=== PATIENT | male | born 1995 | race Caucasian/White ===

== ENCOUNTER 2022-09-10 19:39 | Inpatient (IN) ==
[2022-09-10 19:59] LABS: Basophils # (auto) 0.01 K/uL (0-0.2); Basophils % (auto) 0.1 %; Hematocrit (blood only) 42.6 % (40.1-51.0); Hemoglobin 15.6 g/dl (14.0-18.0); Immature Granulocytes # (auto) 0.02 K/uL (0.00-0.02); Immature Granulocytes % (auto) 0.3 %; Lymphocytes # (auto) 0.74 K/uL (1.2-3.4); Lymphocytes % (auto) 9.8 %; Mean Corpuscular Hemoglobin 32.2 pg (25.0-34.0); Mean Corpuscular Hgb Conc 36.6 g/dL (32.0-36.0); Mean Platelet Volume 10.1 fL (9.4-12.4); Monocytes # (auto) 0.34 K/uL (0.24-0.82); Monocytes % (auto) 4.5 %; Neutrophils # (auto) 6.45 K/uL (1.4-6.5); Neutrophils % (auto) 85.3 %; Platelet Count 210 K/uL (130-400); RDW Coefficient of Variation 12.1 % (11.5-14.5); RDW Standard Deviation 39.2 fL (36.4-46.3); Red Blood Count 4.84 M/uL (4.63-6.08); White Blood Count 7.56 K/ul (4.8-10.8)
[2022-09-10 20:32] LABS: Albumin Globulin Ratio 1.8 (0.9-2); Albumin Level 4.8 gm/dl (3.4-5.0); BUN Creatinine Ratio 7.6 (10-20); Bilirubin,Total 1.7 mg/dl (0.2-1.0); Calcium 9.7 mg/dl (8.5-10.1); Creatinine Clr Calc Pharmacy 84.1 ml/min; Est GFR (African American) 96.8 ml/min; Est GFR (Non-African American) 83.5 ml/min; Globulin 2.6 gm/dl (2.5-4.0); Potassium 3.7 mmol/L (3.5-5.1); Total Protein 7.4 gm/dl (6.0-8.3)
[2022-09-10] MEDS ORDERED: SODIUM CHLORIDE 0.9% 1000ML 1,000 ML IV ONE ×2 (20:34→21:09)
[2022-09-10] MEDS ORDERED: ONDANSETRON INJ 2 MG/ML 2 ML VIAL IV STA (20:34)
--- NOTE | 2022-09-10 20:43 | Emergency Department Note ---
Impression & Plan Acute appendicitis with rupture, Abdominal pain, acute, right lower quadrant ED Provider Note NAME: JB ORTIZ AGE: 27 SEX: M : 1995 ARRIVES VIA: Walk-In INFORMANT: Patient, ED PROVIDER(S): Harshad Ross DO CHIEF COMPLAINT: Abdominal pain HPI: The patient is a 27-year-old male who presented to the emergency department for an evaluation of abdominal pain. The patient noticed lower abdominal pain which began over the last 48 hours. He states he has had episodes of nausea as well as vomiting. He does have a history of alcohol abuse but only very mild and not very often. He denies having any black or bloody bowel moods. He denies having any hematemesis. He tried [id number] medication with only minimal relief. He presents emergency department today because of worsening pain. The patient states the pain is worsened with ambulation as well as palpation over the lower abdomen. He denies having any testicular pain. ROS: See above HPI for pertinent positives & negatives. A total of 10 systems reviewed and were otherwise negative. PAST MEDICAL HISTORY: See Below PAST SURGICAL HISTORY: See Below FAMILY HISTORY: See Below SOCIAL HISTORY: See Below HOME MEDICATIONS: See Below ALLERGIES: See Below VITALS: See Below PHYSICAL EXAMINATION: GENERAL: The patient is awake and alert. He is very anxious appearing. He appears very comfortable. EYES: The conjunctivae are clear. The pupils are round and reactive. EARS, NOSE, MOUTH AND THROAT: The nose is without any evidence of any deformity. NECK: The neck is nontender and supple. RESPIRATORY: Normal respiratory effort is noted there is no evidence of wheezing rhonchi or rales CARDIOVASCULAR: Regular rate and rhythm noted there no murmurs rubs or gallops normal S1 normal S2. GASTROINTESTINAL: The abdomen was soft. The abdomen was mildly distended. There is significant lower abdominal tenderness to palpation with guarding in the right lower quadrant. MUSCULOSKELETAL/EXTREMITIES: There is no evidence of gross deformity full range of motion is noted in the hips and shoulders. SKIN: There is no obvious evidence of any rash. There are no petechiae, pallor or cyanosis noted. NEUROLOGIC: Patient is awake alert and oriented x3. Gait was steady MEDICAL DECISION MAKING: The patient is a 27-year-old male who presented to the emergency department for an evaluation of abdominal pain. The patient initially stated his pain was only ongoing for a short period of time but on reevaluation he did admit he has had some pain over the course the last 3 days. The patient had significant guarding on physical exam. White blood cell count was not elevated however because of the amount of guarding CT the abdomen and pelvis was obtained. I discussed patient's laboratory and radiographic studies with him. He was found to have signs of ruptured appendicitis with dilated loops of small bowel on CT. For this reason he was treated with IV antibiotics. He was treated with IV fluids and IV pain medication. On reevaluation he was significantly improved. I discussed his case with the on-call general surgical group. [facility] evaluate the patient for further management and disposition. Triage Nursing notes reviewed. Prior medical records reviewed Vital Signs: reviewed and remarkable for no significant abnormalities Differential diagnosis: Etiologies such as appendicitis, diverticulitis, obstruction, inflammatory bowel disease, renal colic, PUD, biliary pathology, pancreatitis, mesenteric ischemia, aortic pathology, infections, genitourinary, UTI, perforated viscus, as well as others were entertained. ER treatment provided: See below Diagnostics interpreted by me: ECG: none Cardiac Monitoring: An order was placed for continuous cardiac monitoring. The monitor shows a rate of 88 bpm with sinus rhythm. Laboratory studies: As stated above and show below. Imaging studies: See below Consultation(s): I discussed this case with Dr. Murillo who is on-call for general surgery. I discussed this case with Dr. Babcock [facility] Past Med/Surg History Social History Smoking Status: Never smoker Preferred Language: Armenian Feels Safe at Home: Yes Allergies Allergies Allergy/AdvReac Type Severity Reaction Status Date / Time No Known Allergies Allergy Unverified 10/07/21 11:02 Home Meds Home Medications Medication Instructions Recorded Confirmed acetaminophen 325 mg tablet 650 mg PO QID PRN Pain 09/08/21 10/07/21 (Tylenol) [id number]-acetaminophen 2 cap PO Q6H PRN Cold Symptoms 09/08/21 10/07/21 6.25 mg-30 mg-15 mg-325 mg capsule ibuprofen 200 mg tablet (Advil) 400 mg PO Q6H PRN fever/ pain 09/08/21 10/07/21 Results & Data (ED) Vital Signs Vital Signs - 24 hr 09/10/22 19:40 09/10/22 20:46 Temperature 37.1 C Temperature Source Temporal Artery Scan Pulse Rate 94 H Pulse Rate [Finger] 88 Pulse Rhythm Regular Pulse Rhythm [Finger] Regular Pulse Strength Normal Pulse Strength [Finger] Normal Respiratory Rate 18 20 Respiratory Effort / Characteristics Non-Labored Spontaneous Non-Labored Respiratory Depth Normal Normal Respiratory Pattern Regular Regular Blood Pressure 101/48 L Blood Pressure [Left Arm] 130/68 Blood Pressure Mean 65 Blood Pressure Mean [Left Arm] 88 Blood Pressure Position Sitting Blood Pressure Position [Left Arm] Lying Pulse Oximetry 100 100 Oxygen Delivery Method Room Air Room Air Sepsis Recent Fever Within 48 Hours No Sepsis New/Unexplained Change in Mental Status N/A Sepsis Action Taken by Nursing No Action Required Home Medications Current Medication List: was personally reviewed by me Laboratory Data Attestation: I reviewed the patient's lab results. Result diagrams: 09/10/22 19:50 09/10/22 19:50 Lab Results 09/10/22 09/10/22 Range/Units 19:50 19:50 WBC 7.56 (4.8-10.8) K/ul RBC 4.84 (4.63-6.08) M/uL Hgb 15.6 (14.0-18.0) g/dl Hct 42.6 (40.1-51.0) % MCV 88.0 (80.0-100.0) fL MCH 32.2 (25.0-34.0) pg MCHC 36.6 H (32.0-36.0) g/dL RDW Std Deviation 39.2 (36.4-46.3) fL RDW Coeff of Kaylie 12.1 (11.5-14.5) % Plt Count 210 (130-400) K/uL MPV 10.1 (9.4-12.4) fL Immature Gran % (Auto) 0.3 % Neut % (Auto) 85.3 % Lymph % (Auto) 9.8 % Cook % (Auto) 4.5 % Eos % (Auto) 0.0 % Baso % (Auto) 0.1 % Neut # (Auto) 6.45 (1.4-6.5) K/uL Lymph # (Auto) 0.74 L (1.2-3.4) K/uL Cook # (Auto) 0.34 (0.24-0.82) K/uL Eos # (Auto) 0.00 (0-0.50) K/uL Baso # (Auto) 0.01 (0-0.2) K/uL Immature Gran # (Auto) 0.02 (0.00-0.02) K/uL Sodium 136 (136-145) mmol/L Potassium 3.7 (3.5-5.1) mmol/L Chloride 97 L (98-107) mmol/L Carbon Dioxide 31 (21-32) mmol/L Anion Gap 8 (3-11) BUN 9 (6-23) mg/dl Creatinine 1.18 (0.6-1.4) mg/dl Est Cr Clr Drug Dosing 84.1 ml/min Est GFR ( Amer) 96.8 ml/min Est GFR (Non-Af Amer) 83.5 ml/min BUN/Creatinine Ratio 7.6 L (10-20) Glucose 122 H (70-99(Fasting)) mg/dl Calcium 9.7 (8.5-10.1) mg/dl Total Bilirubin 1.7 H (0.2-1.0) mg/dl AST 18 (13-39) U/L ALT 15 (7-52) U/L Alkaline Phosphatase 90 (34-104) U/L Total Protein 7.4 (6.0-8.3) gm/dl Albumin 4.8 (3.4-5.0) gm/dl Globulin 2.6 (2.5-4.0) gm/dl Albumin/Globulin Ratio 1.8 (0.9-2) Lipase 14 (11-82) U/L Administered Medications Discontinued Medications Sodium Chloride (Nss 1000ml) 1,000 mls @ 999 mls/hr IV .Q1H1M ONE Stop: 09/10/22 21:34 Last Admin: 09/10/22 20:44 Dose: 999 mls/hr Documented By: JEET Piperacillin Sod/Tazobactam Sod (Zosyn) 4.5 gm in 120 mls @ 240 mls/hr IV NOW ONE Stop: 09/10/22 21:38 Last Admin: 09/10/22 21:29 Dose: 240 mls/hr Documented By: JEET Ioversol (Optiray 350 100ml) 87 ml IV ONCE ONE Stop: 09/10/22 20:57 Last Admin: 09/10/22 20:58 Dose: 87 ml Documented By: JHONATHAN Morphine Sulfate (Morphine Sulfate 4 Mg/Ml 1 Ml Carp\Vial) 4 mg IV NOW STA Stop: 09/10/22 20:49 Last Admin: 09/10/22 21:29 Dose: 4 mg Documented By: JEET Ondansetron HCl (Ondansetron Inj 2 Mg/Ml 2 Ml Vial) 4 mg IV NOW STA Stop: 09/10/22 20:35 Last Admin: 09/10/22 20:45 Dose: 4 mg Documented By: JEET Imaging Data Radiologist's Impression: Abdomen/Pelvis CT 09/10/22 20:34 CT SCAN OF THE ABDOMEN AND PELVIS WITH IV CONTRAST CLINICAL HISTORY: Lower abdominal pain. Nausea and vomiting. COMPARISON STUDY: No priors. TECHNIQUE: Following the IV administration of 87 cc of Optiray 350, CT scan of the abdomen and pelvis is performed from the lung bases to the proximal femora. Images are reviewed in the axial, sagittal, and coronal planes. IV contrast was administered without complication. A dose lowering technique was utilized adhering to the principles of ALARA. CT DOSE: 270.25 mGy.cm FINDINGS: Lung bases: The heart is normal in size and without pericardial effusion. Atelectasis is noted in the right middle lobe. The lung bases are otherwise clear. Liver: The contrast-enhanced liver is normal in size, contour, and attenuation. There is no intrahepatic biliary ductal dilatation. The hepatic veins and portal veins are patent. Gallbladder: Unremarkable. Spleen: Normal in size and attenuation. Pancreas: Unremarkable. Adrenal glands: Unremarkable. Kidneys: The contrast enhanced kidneys are normal in size and without hydronephrosis. The kidneys enhance symmetrically. Abdominal vasculature: The abdominal aorta is normal in course and caliber. Bowel: There is moderate colonic fecal retention. The appendix is dilated measuring up to 1.5 cm as seen on image #287. A calcified appendicolith at the base of the appendix is seen on image #278. The appendiceal wall is markedly thickened and hyperemic and there is extensive surrounding inflammation and fluid. Findings consistent with acute appendicitis. There is evidence of perforation with surrounding phlegmon. No organized/drainable fluid collection is identified. Mildly distended and fluid-filled loops of small bowel measure up to 2.3 cm diameter. This likely represents ileus. There is no evidence of high- grade obstruction. Peritoneum: There is trace fluid within the paracolic gutters and in the pelvis. No intraperitoneal free air is identified. There is a fat-containing umbilical hernia. Infiltration of the mesentery suggests peritonitis. Lymphadenopathy: Mildly enlarged mesenteric lymph nodes are likely reactive. Pelvic viscera: The bladder is decompressed and circumferentially thick-walled. The prostate and seminal vesicles unremarkable as visualized. Skeletal structures: No lytic or blastic lesions are seen. IMPRESSION: 1. Severe acute appendicitis with perforation. 2. There is flexion change in the right lower quadrant around the appendix with no organized/drainable fluid collection to indicate abscess. 3. There is trace free fluid in the paracolic gutters and pelvis as well as in filtration throughout the mesentery suggesting peritonitis. 4. Small bowel loops are mildly distended and fluid-filled, likely representing ileus. There is no evidence of high-grade obstruction. 5. The bladder wall is circumferentially thickened. Correlate with clinical findings and urinalysis. ACT 112: Negative or not required by law. Electronically signed by: Buck Parekh M.D. 09/10/2022 9:12 PM Discharge Plan Visit Data Chief Complaint: Abdominal Pain Stated Complaint: ABDOMINAL PAIN ED Provider: Harshad Ross Discharge Problem: Acute appendicitis with rupture, Abdominal pain, acute, right lower quadrant Patient Disposition: Being Evaluated by Surgeon Forms Stand Alone Forms: [facility] [employer] Prescriptions Prescriptions: No Action acetaminophen [Tylenol] 325 mg Tablet 650 mg PO QID PRN (Reason: Pain) ibuprofen [Advil] 200 mg Tablet 400 mg PO Q6H PRN (Reason: fever/ pain) Vicks NyQuil Liquicaps 6.79-81-69-325 mg Capsule 2 cap PO Q6H PRN (Reason: Cold Symptoms) Referrals Referrals: Micheal Herrera PA-C [Primary Care Provider] -
[2022-09-10] MEDS ORDERED: MoRPHine SULFATE 4 MG/ML 1 ML CARP\\VIAL IV STA (20:48)
[2022-09-10] MEDS ORDERED: OPTIRAY 350 100ml IV ONE (20:56)
[2022-09-10] MEDS ORDERED: PIPERACILLIN/TAZOBACTAM 4.5 GM/120 ML BAG IV ONE (21:09)
--- NOTE | 2022-09-10 21:14 | CT Scan Report ---
CT SCAN OF THE ABDOMEN AND PELVIS WITH IV CONTRAST CLINICAL HISTORY: Lower abdominal pain. Nausea and vomiting. COMPARISON STUDY: No priors. TECHNIQUE: Following the IV administration of 87 cc of Optiray 350, CT scan of the abdomen and pelvi s is performed from the lung bases to the proximal femora. Images are reviewed in the axial, sagittal , and coronal planes. IV contrast was administered without complication. A dose lowering technique wa s utilized adhering to the principles of ALARA. CT DOSE: 270.25 mGy.cm FINDINGS: Lung bases: The heart is normal in size and without pericardial effusion. Atelectasis is noted in the right middle lobe. The lung bases are otherwise clear. Liver: The contrast-enhanced liver is normal in size, contour, and attenuation. There is no intrahepa tic biliary ductal dilatation. The hepatic veins and portal veins are patent. Gallbladder: Unremarkable. Spleen: Normal in size and attenuation. Pancreas: Unremarkable. Adrenal glands: Unremarkable. Kidneys: The contrast enhanced kidneys are normal in size and without hydronephrosis. The kidneys enh ance symmetrically. Abdominal vasculature: The abdominal aorta is normal in course and caliber. Bowel: There is moderate colonic fecal retention. The appendix is dilated measuring up to 1.5 cm as seen on image #287. A calcified appendicolith at the base of the appendix is seen on image #278. The appendiceal wall is markedly thickened and hyperemic and there is extensive surrounding inflammation and fluid. Findings consistent with acute appendicitis. There is evidence of perforation with surroun ding phlegmon. No organized/drainable fluid collection is identified. Mildly distended and fluid-fill ed loops of small bowel measure up to 2.3 cm diameter. This likely represents ileus. There is no evid ence of high-grade obstruction. Peritoneum: There is trace fluid within the paracolic gutters and in the pelvis. No intraperitoneal f ree air is identified. There is a fat-containing umbilical hernia. Infiltration of the mesentery sugg ests peritonitis. Lymphadenopathy: Mildly enlarged mesenteric lymph nodes are likely reactive. Pelvic viscera: The bladder is decompressed and circumferentially thick-walled. The prostate and semi nal vesicles unremarkable as visualized. Skeletal structures: No lytic or blastic lesions are seen. IMPRESSION: 1. Severe acute appendicitis with perforation. 2. There is flexion change in the right lower quadrant around the appendix with no organized/drainabl e fluid collection to indicate abscess. 3. There is trace free fluid in the paracolic gutters and pelvis as well as infiltration throughout t he mesentery suggesting peritonitis. 4. Small bowel loops are mildly distended and fluid-filled, likely representing ileus. There is no ev idence of high-grade obstruction. 5. The bladder wall is circumferentially thickened. Correlate with clinical findings and urinalysis. ACT 112: Negative or not required by law. Electronically signed by: Buck Parekh M.D. 09/10/2022 9:12 PM
[2022-09-10 21:54] LABS: Appearance Urine Clear (Clear); Bacteria Urine Automated Negative (Negative); Bilirubin Urine Negative (Negative); Blood Urine Negative (Negative); Color Urine Dark Yellow; Glucose Urine UA Negative (Negative); Ketones Urine 1+ (Negative); Leukocyte Esterase Urine Negative (Negative); Nitrite Urine Negative (Negative); RBC Urine Automated 0-4 /hpf (0-4); Specific Gravity Urine 1.021 (1.000-1.030); Urobilinogen Urine Negative (Negative)
[2022-09-10 21:57] LABS: Protein Urine Trace (Negative)
[2022-09-10] MEDS ORDERED: LACTATED RINGER'S 1,000 ML IV ONE (22:25)
--- NOTE | 2022-09-10 22:40 | History & Physical Report ---
Date of Service September 10, 2022 Assessment & Plan (1) Appendicitis with perforation: Plan: Patient not toxic for now Alcohol abuse as per patient admission Last alcohol intake was last week. No prior history of alcohol withdrawal as per patient. Hyperglycemia rule out DM GMF Zosyn General surgery consult Re: Perforated appendicitis (ER provider already in touch with Dr. Figueroa.) N.p.o. until patient seen by general surgery DT precautions Initiate ANTONIO S once patient manifests signs of alcohol withdrawal. Check hemoglobin A1c. DVT prophylaxis. Lovenox subcu Full code Text document was generated using WinView voice recognition software. It may contain grammatical or spelling errors. Kindly contact undersigned for clarification of any documentation item in question. History of Present Illness Chief Complaint: Abdominal pain Primary Care Provider: Micheal Herrera PA-C History obtained from patient, family, and records. Medical history significant for alcohol abuse. 2 days history of central abdominal pain which later localized to the right lower quadrant. Nausea and emesis symptoms. No fever, no chills. Chest pain, no shortness of breath. No BM for 2 days. Patient consulted ER for evaluation. Zosyn administered for perforated appendicitis. Medical History as above Surgical History : Dental surgery Family History : Heart disease, stroke Personal/Social history : Non-smoker, intermittent alcohol abuse, manufacturing engineer assembly Allergies Allergy/AdvReac Type Severity Reaction Status Date / Time No Known Allergies Allergy Unverified 09/10/22 23:11 Home Medications Medication Instructions Recorded Confirmed Type ibuprofen 200 mg tablet (Advil) 400 mg PO Q8 PRN fever/ pain 09/08/21 09/10/22 History ascorbic acid (vitamin C) 100 mg 100 mg PO DAILY PRN Prophylaxis 09/10/22 09/10/22 History tablet docusate sodium 100 mg capsule 100 mg PO TID PRN Constipation 09/10/22 09/10/22 History (Stool Softener) Past Med/Surg History Social History Smoking Status: Never smoker Hx Alcohol Use: Yes Hx Substance Use: No Preferred Language: Yakut Communication Ability: Effective Head Bone Grinder Required: No Beliefs That Will Affect Care: None Current Living Situation: Significant Other Other Information That Helps Us Care for You: No Feels Safe at Home: Yes Safety Concerns: Feels Safe At This Time Assistive Devices: None Review of Systems Review of Systems: As per HPI, all other systems reviewed and negative Physical Exam Physical Exam: GENERAL: Slightly uncomfortable, pleasant, no respiratory distress SKIN: Normal color, warm HEENT: [place] palpebral conjunctivae, no ptosis, dry buccal mucosa NECK : Supple, no tenderness CHEST : CTA, no tenderness HEART : RRR, no obvious murmurs ABDOMEN: Some distention, some guarding noted, generalized abdominal tenderness EXTREMITIES : No LE swelling/tenderness, no other conspicuous deformities noted NEUROLOGIC : Coherent, no facial asymmetry, no other gross focality Results & Data Results & Data ([facility]) Vital Signs (Past 12 Hours) Vital Signs Temp Pulse Pulse Resp BP BP Pulse Ox 09/10/22 22:00 96 H 20 120/57 L 98 09/10/22 20:46 88 20 130/68 100 09/10/22 19:40 37.1 C 94 H 18 101/48 L 100 O2 Del Method 09/10/22 22:00 Room Air 09/10/22 20:46 Room Air 09/10/22 19:40 Room Air Laboratory Results Laboratory Results WBC 7.56 K/ul (4.8-10.8) 09/10/22 19:50 RBC 4.84 M/uL (4.63-6.08) 09/10/22 19:50 Hgb 15.6 g/dl (14.0-18.0) 09/10/22 19:50 Hct 42.6 % (40.1-51.0) 09/10/22 19:50 MCV 88.0 fL (80.0-100.0) 09/10/22 19:50 MCH 32.2 pg (25.0-34.0) 09/10/22 19:50 MCHC 36.6 g/dL (32.0-36.0) H 09/10/22 19:50 RDW Std Deviation 39.2 fL (36.4-46.3) 09/10/22 19:50 RDW Coeff of Kaylie 12.1 % (11.5-14.5) 09/10/22 19:50 Plt Count 210 K/uL (130-400) 09/10/22 19:50 MPV 10.1 fL (9.4-12.4) 09/10/22 19:50 Immature Gran % (Auto) 0.3 % 09/10/22 19:50 Neut % (Auto) 85.3 % 09/10/22 19:50 Lymph % (Auto) 9.8 % 09/10/22 19:50 [place] % (Auto) 4.5 % 09/10/22 19:50 Eos % (Auto) 0.0 % 09/10/22 19:50 Baso % (Auto) 0.1 % 09/10/22 19:50 Neut # (Auto) 6.45 K/uL (1.4-6.5) 09/10/22 19:50 Lymph # (Auto) 0.74 K/uL (1.2-3.4) L 09/10/22 19:50 [place] # (Auto) 0.34 K/uL (0.24-0.82) 09/10/22 19:50 Eos # (Auto) 0.00 K/uL (0-0.50) 09/10/22 19:50 Baso # (Auto) 0.01 K/uL (0-0.2) 09/10/22 19:50 Immature Gran # (Auto) 0.02 K/uL (0.00-0.02) 09/10/22 19:50 Sodium 136 mmol/L (136-145) 09/10/22 19:50 Potassium 3.7 mmol/L (3.5-5.1) 09/10/22 19:50 Chloride 97 mmol/L (98-107) L 09/10/22 19:50 Carbon Dioxide 31 mmol/L (21-32) 09/10/22 19:50 Anion Gap 8 (3-11) 09/10/22 19:50 BUN 9 mg/dl (6-23) 09/10/22 19:50 Creatinine 1.18 mg/dl (0.6-1.4) 09/10/22 19:50 Est Cr Clr Drug Dosing 84.1 ml/min 09/10/22 19:50 Est GFR ( Amer) 96.8 ml/min 09/10/22 19:50 Est GFR (Non-Af Amer) 83.5 ml/min 09/10/22 19:50 BUN/Creatinine Ratio 7.6 (10-20) L 09/10/22 19:50 Glucose 122 mg/dl (70-99(Fasting)) H 09/10/22 19:50 Calcium 9.7 mg/dl (8.5-10.1) 09/10/22 19:50 Total Bilirubin 1.7 mg/dl (0.2-1.0) H 09/10/22 19:50 AST 18 U/L (13-39) 09/10/22 19:50 ALT 15 U/L (7-52) 09/10/22 19:50 Alkaline Phosphatase 90 U/L (34-104) 09/10/22 19:50 Total Protein 7.4 gm/dl (6.0-8.3) 09/10/22 19:50 Albumin 4.8 gm/dl (3.4-5.0) 09/10/22 19:50 Globulin 2.6 gm/dl (2.5-4.0) 09/10/22 19:50 Albumin/Globulin Ratio 1.8 (0.9-2) 09/10/22 19:50 Lipase 14 U/L (11-82) 09/10/22 19:50 Urine Color Dark Yellow 09/10/22 21:40 Urine Appearance Clear (Clear) 09/10/22 21:40 Urine pH 8.0 (4.5-7.5) H 09/10/22 21:40 Ur Specific [place] 1.021 (1.000-1.030) 09/10/22 21:40 Urine Protein Trace (Negative) H 09/10/22 21:40 Urine Glucose (UA) Negative (Negative) 09/10/22 21:40 Urine Ketones 1+ (Negative) H 09/10/22 21:40 Urine Blood Negative (Negative) 09/10/22 21:40 Urine Nitrite Negative (Negative) 09/10/22 21:40 Urine Bilirubin Negative (Negative) 09/10/22 21:40 Urine Urobilinogen Negative (Negative) 09/10/22 21:40 Ur Leukocyte Esterase Negative (Negative) 09/10/22 21:40 Urine WBC (Auto) 1-5 /hpf (0-5) 09/10/22 21:40 Urine RBC (Auto) 0-4 /hpf (0-4) 09/10/22 21:40 U Hyaline Cast (Auto) 1-5 /lpf (0-5) 09/10/22 21:40 U Epithel Cells (Auto) 10-20 /lpf (0-5) H 09/10/22 21:40 Urine Bacteria (Auto) Negative (Negative) 09/10/22 21:40 SARS-CoV-2, RNA, NAAT NEGATIVE (NEGATIVE) 09/10/22 21:42 Impressions Abdomen/Pelvis CT 09/10/22 20:34 CT SCAN OF THE ABDOMEN AND PELVIS WITH IV CONTRAST CLINICAL HISTORY: Lower abdominal pain. Nausea and vomiting. COMPARISON STUDY: No priors. TECHNIQUE: Following the IV administration of 87 cc of Optiray 350, CT scan of the abdomen and pelvis is performed from the lung bases to the proximal femora. Images are reviewed in the axial, sagittal, and coronal planes. IV contrast was administered without complication. A dose lowering technique was utilized adhering to the principles of ALARA. CT DOSE: 270.25 mGy.cm FINDINGS: Lung bases: The heart is normal in size and without pericardial effusion. Atelectasis is noted in the right middle lobe. The lung bases are otherwise clear. Liver: The contrast-enhanced liver is normal in size, contour, and attenuation. There is no intrahepatic biliary ductal dilatation. The hepatic veins and portal veins are patent. Gallbladder: Unremarkable. Spleen: Normal in size and attenuation. Pancreas: Unremarkable. Adrenal glands: Unremarkable. Kidneys: The contrast enhanced kidneys are normal in size and without hydronephrosis. The kidneys enhance symmetrically. Abdominal vasculature: The abdominal aorta is normal in course and caliber. Bowel: There is moderate colonic fecal retention. The appendix is dilated measuring up to 1.5 cm as seen on image #[id number]. A calcified appendicolith at the base of the appendix is seen on image #[id number]. The appendiceal wall is markedly thickened and hyperemic and there is extensive surrounding inflammation and fluid. Findings consistent with acute appendicitis. There is evidence of perforation with surrounding phlegmon. No organized/drainable fluid collection is identified. Mildly distended and fluid-filled loops of small bowel measure up to 2.3 cm diameter. This likely represents ileus. There is no evidence of high- grade obstruction. Peritoneum: There is trace fluid within the paracolic gutters and in the pelvis. No intraperitoneal free air is identified. There is a fat-containing umbilical hernia. Infiltration of the mesentery suggests peritonitis. Lymphadenopathy: Mildly enlarged mesenteric lymph nodes are likely reactive. Pelvic viscera: The bladder is decompressed and circumferentially thick-walled. The prostate and seminal vesicles unremarkable as visualized. Skeletal structures: No lytic or blastic lesions are seen. IMPRESSION: 1. Severe acute appendicitis with perforation. 2. There is flexion change in the right lower quadrant around the appendix with no organized/drainable fluid collection to indicate abscess. 3. There is trace free fluid in the paracolic gutters and pelvis as well as infiltration throughout the mesentery suggesting peritonitis. 4. Small bowel loops are mildly distended and fluid-filled, likely representing ileus. There is no evidence of high-grade obstruction. 5. The bladder wall is circumferentially thickened. Correlate with clinical findings and urinalysis. ACT 112: Negative or not required by law. Electronically signed by: Buck Parekh M.D. 09/10/2022 9:12 PM
[2022-09-10] MEDS ORDERED: THIAMINE HCL 100 MG in SYRINGE 9 ML IV STA (22:42)
[2022-09-10] MEDS ORDERED: KETOROLAC TROMETHAMINE 15 MG/ML VIAL IV ONE (22:44)
[2022-09-10] MEDS ORDERED: PROMETHAZINE HCL 12.5 MG in SODIUM CHLORIDE 0.9% 50 ML IV PRN (22:44)
[2022-09-10] MEDS ORDERED: LORazepam 0.5 MG in SYRINGE 0 ML IV PRN (22:44)
--- NOTE | 2022-09-10 23:03 | Surgery Consultation ---
Date of Consultation September 10, 2022 Assessment & Plan (1) Appendicitis with perforation: walled off perforation IV zosyn NPO conservative trial since exploration would likely be morbid operation not toxic appearing, only local tenderness Present on Admission?: Yes History of Present Illness History of Present Illness This is a 27-year-old male who presented to the emergency department for an evaluation of abdominal pain. It began over the last 48 hours with associated nausea as well as vomiting. The patient states the pain is worsened with ambulation as well as palpation over the lower abdomen. He denies having any dysuris. A CT scan shows a walled off perforated appendix with a phlegmon. No free air or free perforation. Allergies Allergy/AdvReac Type Severity Reaction Status Date / Time No Known Allergies Allergy Unverified 10/07/21 11:02 Home Medications Medication Instructions Recorded Confirmed Type acetaminophen 325 mg tablet 650 mg PO QID PRN Pain 09/08/21 10/07/21 History (Tylenol) [id number]-acetaminophen 2 cap PO Q6H PRN Cold Symptoms 09/08/21 10/07/21 History 6.25 mg-30 mg-15 mg-325 mg capsule ibuprofen 200 mg tablet (Advil) 400 mg PO Q6H PRN fever/ pain 09/08/21 10/07/21 History Patient History Social History Smoking Status: Never smoker Preferred Language: Faroese Feels Safe at Home: Yes Review of Systems Constitutional: + anorexia; no fever and no chills Eyes: no problem reported Ear, Nose, Mouth, Throat: no problem reported Respiratory: no cough and no dyspnea Cardiovascular: no chest pain Gastrointestinal: + abdominal pain, + nausea and + vomiting; no change in bowel habits Genitourinary: no dysuria Musculoskeletal: no back pain Integumentary: no rash and no lesions Neurologic: no localized weakness and no generalized weakness Psychiatric: no behavioral changes Physical Exam Constitutional: WD/WN, vitals as above no acute distress and not ill appearing Eyes: PERRL, conjunctivae normal, anicteric sclerae ENMT: external ear and nose normal, oropharynx normal Neck: trachea midline Respiratory: normal respiratory effort, lungs clear to auscultation Cardiovascular: RRR, no murmur, no edema Gastrointestinal (Abdomen): Inspection/Auscultation: abdomen normal to inspection and normal bowel sounds; abdomen not distended Percussion/Palpation: + abdomen tender (RLQ), + guarding and abdomen soft; abdomen not rigid and no hernia Musculoskeletal: Head/Neck/Chest: normocephalic and head atraumatic Skin: no rashes, warm and dry Psychiatric: Orientation: alert and oriented x 3 Results & Data ([facility]) Vital Signs (Past 12 Hours) Vital Signs Temp Pulse Pulse Resp BP BP Pulse Ox 09/10/22 22:00 96 H 20 120/57 L 98 09/10/22 20:46 88 20 130/68 100 09/10/22 19:40 37.1 C 94 H 18 101/48 L 100 O2 Del Method 09/10/22 22:00 Room Air 09/10/22 20:46 Room Air 09/10/22 19:40 Room Air Diagnostic Findings CT SCAN OF THE ABDOMEN AND PELVIS WITH IV CONTRAST CLINICAL HISTORY: Lower abdominal pain. Nausea and vomiting. COMPARISON STUDY: No priors. TECHNIQUE: Following the IV administration of 87 cc of Optiray 350, CT scan of the abdomen and pelvis is performed from the lung bases to the proximal femora. Images are reviewed in the axial, sagittal, and coronal planes. IV contrast was administered without complication. A dose lowering technique was utilized adhering to the principles of ALARA. CT DOSE: 270.25 mGy.cm FINDINGS: Lung bases: The heart is normal in size and without pericardial effusion. Atelectasis is noted in the right middle lobe. The lung bases are otherwise clear. Liver: The contrast-enhanced liver is normal in size, contour, and attenuation. There is no intrahepatic biliary ductal dilatation. The hepatic veins and portal veins are patent. Gallbladder: Unremarkable. Spleen: Normal in size and attenuation. Pancreas: Unremarkable. Adrenal glands: Unremarkable. Kidneys: The contrast enhanced kidneys are normal in size and without hydronephrosis. The kidneys enhance symmetrically. Abdominal vasculature: The abdominal aorta is normal in course and caliber. Bowel: There is moderate colonic fecal retention. The appendix is dilated measuring up to 1.5 cm as seen on image #287. A calcified appendicolith at the base of the appendix is seen on image #278. The appendiceal wall is markedly thickened and hyperemic and there is extensive surrounding inflammation and fluid. Findings consistent with acute appendicitis. There is evidence of perforation with surrounding phlegmon. No organized/drainable fluid collection is identified. Mildly distended and fluid-filled loops of small bowel measure up to 2.3 cm diameter. This likely represents ileus. There is no evidence of high- grade obstruction. Peritoneum: There is trace fluid within the paracolic gutters and in the pelvis. No intraperitoneal free air is identified. There is a fat-containing umbilical hernia. Infiltration of the mesentery suggests peritonitis. Lymphadenopathy: Mildly enlarged mesenteric lymph nodes are likely reactive. Pelvic viscera: The bladder is decompressed and circumferentially thick-walled. The prostate and seminal vesicles unremarkable as visualized. Skeletal structures: No lytic or blastic lesions are seen. IMPRESSION: 1. Severe acute appendicitis with perforation. 2. There is flexion change in the right lower quadrant around the appendix with no organized/drainable fluid collection to indicate abscess. 3. There is trace free fluid in the paracolic gutters and pelvis as well as infiltration throughout the mesentery suggesting peritonitis. 4. Small bowel loops are mildly distended and fluid-filled, likely representing ileus. There is no evidence of high-grade obstruction. 5. The bladder wall is circumferentially thickened. Correlate with clinical findings and urinalysis.
[2022-09-11] MEDS: MAGNESIUM SULFATE / D5W 1 GM/100 ML BAG IV SCH ×3 (00:41→04:36)
[2022-09-11] MEDS: oxyCODONE HCL IR 5 MG TAB (IMMEDIATE RELEASE) PO PRN ×2 (00:46→13:16)
[2022-09-11] MEDS: KETOROLAC TROMETHAMINE 15 MG/ML VIAL IV PRN ×3 (02:36→16:24)
[2022-09-11] MEDS: PIPERACILLIN/TAZOBACTAM 3.375 GM in DEXTROSE 5% 100 ML IV SCH ×3 (04:35→20:26)
[2022-09-11] MEDS: ACETAMINOPHEN 325 MG TAB PO PRN ×2 (07:40→19:47)
[2022-09-11 09:20] LABS: Hematocrit (blood only) 39.6 % (40.1-51.0); Mean Corpuscular Hemoglobin 31.6 pg (25.0-34.0); Mean Corpuscular Hgb Conc 35.4 g/dL (32.0-36.0); Mean Corpuscular Volume 89.4 fL (80.0-100.0); Mean Platelet Volume 10.8 fL (9.4-12.4); Platelet Count 160 K/uL (130-400); RDW Coefficient of Variation 12.7 % (11.5-14.5); RDW Standard Deviation 41.6 fL (36.4-46.3); Red Blood Count 4.43 M/uL (4.63-6.08); White Blood Count 10.55 K/ul (4.8-10.8)
[2022-09-11 09:22] LABS: Basophils # (auto) 0.01 K/uL (0-0.2); Basophils % (auto) 0.1 %; Immature Granulocytes # (auto) 0.03 K/uL (0.00-0.02); Immature Granulocytes % (auto) 0.3 %; Lymphocytes # (auto) 0.58 K/uL (1.2-3.4); Lymphocytes % (auto) 5.5 %; Monocytes # (auto) 0.53 K/uL (0.24-0.82); Neutrophils % (auto) 89.1 %
[2022-09-11 09:31] LABS: BUN Creatinine Ratio 8.4 (10-20); Calcium 8.7 mg/dl (8.5-10.1); Creatinine Clr Calc Pharmacy 75.8 ml/min; Est GFR (African American) 85.3 ml/min; Est GFR (Non-African American) 73.6 ml/min; Magnesium 2.6 mg/dl (1.7-2.4); Potassium 4.6 mmol/L (3.5-5.1)
[2022-09-11] MEDS: FOLIC ACID 1 MG TAB PO SCH (10:08)
[2022-09-11] MEDS: MULTIVITAMIN TAB PO SCH (10:08)
[2022-09-11] MEDS: THIAMINE HCL 100 MG TAB PO SCH (10:08)
[2022-09-11] MEDS: ENOXAPARIN INJ 40 MG/0.4 ML SYR SQ SCH (10:08)
--- NOTE | 2022-09-11 11:35 | Surgery Progress Note ---
Date of Service September 11, 2022 Assessment & Plan (1) Acute appendicitis with rupture: Plan: improved con't IV abx NPO for now possible clears tonight or tomorrow WBC normal Present on Admission?: Yes Admission and Anticipated Discharge Date Admission Date: September 10, 2022 Subjective pain a little better no fevers hungry Review of Systems Constitutional: no fever and no chills Respiratory: no cough and no dyspnea Cardiovascular: no chest pain Gastrointestinal: + abdominal pain; no nausea, no vomiting and no change in bowel habits Genitourinary: no dysuria Musculoskeletal: no back pain Integumentary: no rash and no lesions Neurologic: no localized weakness and no generalized weakness Psychiatric: no behavioral changes Physical Exam Constitutional: WD/WN, vitals as above Eyes: PERRL, conjunctivae normal, anicteric sclerae ENMT: external ear and nose normal, oropharynx normal Neck: trachea midline Respiratory: normal respiratory effort, lungs clear to auscultation Cardiovascular: RRR, no murmur, no edema Gastrointestinal (Abdomen): Inspection/Auscultation: abdomen normal to inspection and normal bowel sounds; abdomen not distended Percussion/Palpation: + abdomen tender and abdomen soft; no guarding and abdomen not rigid Musculoskeletal: Head/Neck/Chest: normocephalic and head atraumatic Skin: no rashes, warm and dry Results & Data ([facility]) Vital Signs (Past 12 Hours) Vital Signs Temp Pulse Resp BP Pulse Ox O2 Del Method 09/11/22 07:23 37.5 C 91 H 16 114/75 99 Room Air 09/11/22 00:11 37 C 103 H 20 103/62 98 Room Air
--- NOTE | 2022-09-11 13:02 | Hospitalist Progress Note ---
Date of Service September 11, 2022 Assessment & Plan (1) Appendicitis with perforation: Plan: Acute appendicitis with perforation --CT ABD:Severe acute appendicitis with perforation. There is flexion change in the right lower quadrant around the appendix with no organized/drainable fluid collection to indicate abscess. There is trace free fluid in the paracolic gutters and pelvis as well as infiltration throughout the mesentery suggesting peritonitis. Small bowel loops are mildly distended and fluid-filled, likely representing ileus. There is no evidence of high-grade obstruction. The bladder wall is circumferentially thickened. Correlate with clinical findings and urinalysis. -- Conservative management as per surgery Appreciate surgery input Continue Zosyn, IV fluids Pain control N.p.o. for now Hypomagnesemia Replete electrolytes as needed Monitor Alcohol use Reports drinking twice per week Monitor for withdrawal Hyperglycemia HbA1C pending DVT Px: Lovenox SQ Code Status Full code Admission and Anticipated Discharge Date Admission Date: September 10, 2022 Subjective Patient is seen and examined at bedside States having abdominal pain which is better Small bowel movement yesterday Denies any chest pain, dyspnea, dizziness No other complaints Afebrile Review of Systems Review of Systems: All systems reviewed & are unremarkable except as noted in Subjective Physical Exam Physical Exam: Physical Exam: Vitals signs as noted above General Appearance:Moderately built and nourished, no apparent distress Head: normocephalic, Atraumatic Eyes: normal inspection, EOMI Neck: supple, Trachea midline Respiratory/Chest: Normal breath sounds, CTA, No accessory muscle use Cardiovascular: S1, S2, No murmur Abdomen/GI:Soft, RUQ tender predominantly, Bowel sounds present Extremities/Musculoskeletal:normal inspection, no edema Neurologic/Psych:AAOX3, grossly no focal neurological deficits Skin: normal color, warm Results & Data Results & Data ([facility]) Vital Signs (Past 12 Hours) Vital Signs Temp Pulse Resp BP Pulse Ox O2 Del Method 09/11/22 07:23 37.5 C 91 H 16 114/75 99 Room Air Laboratory Results Short CBC 09/10/22 09/11/22 Range/Units 19:50 07:16 WBC 7.56 10.55 (4.8-10.8) K/ul Hgb 15.6 14.0 (14.0-18.0) g/dl Hct 42.6 39.6 L (40.1-51.0) % Plt Count 210 160 (130-400) K/uL BMP 09/10/22 09/11/22 19:50 07:16 Sodium 136 138 Potassium 3.7 4.6 D Chloride 97 L 103 Carbon Dioxide 31 29 BUN 9 11 Creatinine 1.18 1.31 Glucose 122 H 98 Calcium 9.7 8.7 Liver Function 09/10/22 Range/Units 19:50 Total Bilirubin 1.7 H (0.2-1.0) mg/dl AST 18 (13-39) U/L ALT 15 (7-52) U/L Alkaline Phosphatase 90 (34-104) U/L Albumin 4.8 (3.4-5.0) gm/dl Urine 09/10/22 Range/Units 21:40 Urine Color Dark Yellow Urine Appearance Clear (Clear) Urine pH 8.0 H (4.5-7.5) Ur Specific [place] 1.021 (1.000-1.030) Urine Protein Trace H (Negative) Urine Glucose (UA) Negative (Negative)
[2022-09-11] MEDS: LACTATED RINGER'S 1,000 ML IV SCH ×2 (13:17→20:26)
[2022-09-12] MEDS: KETOROLAC TROMETHAMINE 15 MG/ML VIAL IV PRN ×2 (00:49→14:57)
[2022-09-12] MEDS: PIPERACILLIN/TAZOBACTAM 3.375 GM in DEXTROSE 5% 100 ML IV SCH ×3 (04:07→19:48)
[2022-09-12] MEDS: LACTATED RINGER'S 1,000 ML IV SCH ×3 (04:07→23:53)
[2022-09-12 05:26] LABS: Hematocrit (blood only) 36.7 % (40.1-51.0); Hemoglobin 13.2 g/dl (14.0-18.0); Mean Corpuscular Hemoglobin 32.2 pg (25.0-34.0); Mean Corpuscular Volume 89.5 fL (80.0-100.0); Mean Platelet Volume 10.4 fL (9.4-12.4); Platelet Count 146 K/uL (130-400); RDW Coefficient of Variation 12.6 % (11.5-14.5); RDW Standard Deviation 41.1 fL (36.4-46.3); White Blood Count 11.63 K/ul (4.8-10.8)
[2022-09-12 06:07] LABS: BUN Creatinine Ratio 12.6 (10-20); Calcium 8.7 mg/dl (8.5-10.1); Creatinine Clr Calc Pharmacy 89.4 ml/min; Est GFR (African American) 104.2 ml/min; Est GFR (Non-African American) 89.9 ml/min; Magnesium 2.2 mg/dl (1.7-2.4); Potassium 3.9 mmol/L (3.5-5.1)
[2022-09-12 07:00] LABS: Estimated Average Glucose 97 mg/dl
[2022-09-12] MEDS: ACETAMINOPHEN 325 MG TAB PO PRN ×3 (07:52→19:54)
[2022-09-12] MEDS: ENOXAPARIN INJ 40 MG/0.4 ML SYR SQ SCH (08:21)
[2022-09-12] MEDS: MULTIVITAMIN TAB PO SCH (08:22)
[2022-09-12] MEDS: THIAMINE HCL 100 MG TAB PO SCH (08:22)
[2022-09-12] MEDS: FOLIC ACID 1 MG TAB PO SCH (08:22)
[2022-09-12] MEDS ORDERED: MoRPHine SULFATE 4 MG/ML 1 ML CARP\\VIAL IV PRN (15:08)
[2022-09-12] MEDS ORDERED: MoRPHine SULFATE 2 MG/ML CARP IV PRN (15:08)
--- NOTE | 2022-09-12 15:12 | Surgery Progress Note ---
Date of Service September 12, 2022 Assessment & Plan (1) Acute appendicitis with rupture: Plan: T-max of 38.1 Abdominal pain slowly improving No nausea no vomiting slight distention on exam Diarrhea Mild increase in leukocytosis of 11.6 (10.5) Plan: Discussed with patient even in the presence of a fever and mild increase in leukocytosis as pain is improving. Would continue IV antibiotics with nonsurgical management at this time given perforated appendicitis with significant phlegmon changes on the CT scan which would likely require more extensive surgery including possible ileocecectomy. Continue IV Zosyn Continue pain management Encouraged ambulating hallway Repeat a.m. labs Dr. [place] has seen and examined patient and agrees with above. Admission and Anticipated Discharge Date Admission Date: September 10, 2022 Subjective Pain is better today able to move around easier Having some diarrhea no blood in the stools Able urinate but some discomfort No nausea no vomiting Still feeling a little bit bloated in the upper left abdomen Having fevers Physical Exam Constitutional: WD/WN, vitals as above cooperative and comfortable; no acute distress and not ill appearing Respiratory: normal respiratory effort and + respiratory distress Gastrointestinal (Abdomen): Inspection/Auscultation: + abdomen distended and + hypoactive bowel sounds; no abdominal surgical scar Percussion/Palpation: + abdomen tender (Right lower quadrant) and abdomen soft; no guarding and abdomen not rigid Skin: no rashes, warm and dry Psychiatric: A+Ox3, euthymic affect Results & Data ([facility]) Vital Signs (Past 12 Hours) Vital Signs Temp Pulse Resp BP BP Pulse Ox O2 Del Method 09/12/22 14:43 38.1 C H 90 16 122/72 99 Room Air 09/12/22 10:19 36.6 C 09/12/22 07:17 37.9 C H 77 16 120/71 97 Room Air Laboratory Results 09/12/22 09/12/22 09/10/22 Range/Units 04:54 04:54 19:50 WBC 11.63 H (4.8-10.8) K/ul RBC 4.10 L (4.63-6.08) M/uL Hgb 13.2 L (14.0-18.0) g/dl Hct 36.7 L (40.1-51.0) % MCV 89.5 (80.0-100.0) fL MCH 32.2 (25.0-34.0) pg MCHC 36.0 (32.0-36.0) g/dL RDW Std Deviation 41.1 (36.4-46.3) fL RDW Coeff of Kaylie 12.6 (11.5-14.5) % Plt Count 146 (130-400) K/uL MPV 10.4 (9.4-12.4) fL Sodium 136 (136-145) mmol/L Potassium 3.9 (3.5-5.1) mmol/L Chloride 104 (98-107) mmol/L Carbon Dioxide 28 (21-32) mmol/L Anion Gap 4 (3-11) BUN 14 (6-23) mg/dl Creatinine 1.11 (0.6-1.4) mg/dl Est Cr Clr Drug Dosing 89.4 ml/min Est GFR ( Amer) 104.2 ml/min Est GFR (Non-Af Amer) 89.9 ml/min BUN/Creatinine Ratio 12.6 (10-20) Glucose 88 (70-99(Fasting)) mg/dl Estimat Average Glucose 97 mg/dl Hemoglobin A1c 5.0 (4.5-5.6) % Calcium 8.7 (8.5-10.1) mg/dl Magnesium 2.2 (1.7-2.4) mg/dl
--- NOTE | 2022-09-12 18:50 | Hospitalist Progress Note ---
Date of Service September 12, 2022 Assessment & Plan (1) Appendicitis with perforation: Plan: Acute appendicitis with perforation --CT ABD:Severe acute appendicitis with perforation. There is flexion change in the right lower quadrant around the appendix with no organized/drainable fluid collection to indicate abscess. There is trace free fluid in the paracolic gutters and pelvis as well as infiltration throughout the mesentery suggesting peritonitis. Small bowel loops are mildly distended and fluid-filled, likely representing ileus. There is no evidence of high-grade obstruction. The bladder wall is circumferentially thickened. Correlate with clinical findings and urinalysis. -- Conservative management as per surgery Appreciate surgery input Continue Zosyn, IV fluids Pain control N.p.o. for now Noted to be febrile, mild leukocytosis Continue conservative management as per surgery Hypomagnesemia Replete electrolytes as needed Monitor Alcohol use Reports drinking twice per week Monitor for withdrawal Hyperglycemia HbA1C 5.0 DVT Px: Lovenox SQ Code Status Full code Admission and Anticipated Discharge Date Admission Date: September 10, 2022 Subjective Patient is seen and examined at bedside Abdominal pain better when compared to yesterday Had bowel movement Febrile today Denies any chest pain, dyspnea, dizziness Review of Systems Review of Systems: All systems reviewed & are unremarkable except as noted in Subjective Physical Exam Physical Exam: Physical Exam: Vitals signs as noted above General Appearance:Moderately built and nourished, no apparent distress Head: normocephalic, Atraumatic Eyes: normal inspection, EOMI Neck: supple, Trachea midline Respiratory/Chest: Normal breath sounds, CTA, No accessory muscle use Cardiovascular: S1, S2, No murmur Abdomen/GI:Soft, RUQ tender predominantly, Bowel sounds present Extremities/Musculoskeletal:normal inspection, no edema Neurologic/Psych:AAOX3, grossly no focal neurological deficits Skin: normal color, warm Results & Data Results & Data ([facility]) Vital Signs (Past 12 Hours) Vital Signs Temp Pulse Resp BP BP Pulse Ox O2 Del Method 09/12/22 17:32 37.4 C 09/12/22 14:43 38.1 C H 90 16 122/72 99 Room Air 09/12/22 10:19 36.6 C 09/12/22 07:17 37.9 C H 77 16 120/71 97 Room Air Laboratory Results Short CBC 09/12/22 Range/Units 04:54 WBC 11.63 H (4.8-10.8) K/ul Hgb 13.2 L (14.0-18.0) g/dl Hct 36.7 L (40.1-51.0) % Plt Count 146 (130-400) K/uL [facility] 09/12/22 04:54 Sodium 136 Potassium 3.9 Chloride 104 Carbon Dioxide 28 BUN 14 Creatinine 1.11 Glucose 88 Calcium 8.7
[2022-09-13] MEDS: PIPERACILLIN/TAZOBACTAM 3.375 GM in DEXTROSE 5% 100 ML IV SCH ×3 (04:42→20:23)
[2022-09-13] MEDS: KETOROLAC TROMETHAMINE 15 MG/ML VIAL IV PRN ×2 (08:05→18:24)
[2022-09-13] MEDS: MULTIVITAMIN TAB PO SCH (08:15)
[2022-09-13] MEDS: FOLIC ACID 1 MG TAB PO SCH (08:15)
[2022-09-13] MEDS: ENOXAPARIN INJ 40 MG/0.4 ML SYR SQ SCH (08:15)
[2022-09-13] MEDS: THIAMINE HCL 100 MG TAB PO SCH (08:16)
--- NOTE | 2022-09-13 08:39 | Surgery Progress Note ---
Date of Service September 13, 2022 Assessment & Plan (1) Acute appendicitis with rupture: Plan: T-max of 38.1 yesterday so far afebrile today Abdominal pain slowly improving No nausea no vomiting ,slight distention on exam, likely secondary small bowel ileus Diarrhea Plan: Will order stool studies for C. difficile given increase in watery diarrhea with stools every hour. Would continue IV antibiotics with nonsurgical management at this time given perforated appendicitis with significant phlegmon changes on the CT scan which would likely require more extensive surgery including possible ileocecectomy. Continue IV Zosyn Continue pain management Encouraged ambulating hallway Discussed with Dr. Washington who agrees with above. Admission and Anticipated Discharge Date Admission Date: September 10, 2022 Subjective Feeling slightly more bloated today mild nausea but controlled belching. Right lower quadrant abdominal pain continues to improve Having multiple episodes of diarrhea Able to urinate without difficulty No chest pain or shortness of breath Ambulating hallway Physical Exam Constitutional: WD/WN, vitals as above cooperative and comfortable; no acute distress and not ill appearing Neck: normal visual inspection and trachea midline Respiratory: normal respiratory effort; no respiratory distress and no labored breathing Gastrointestinal (Abdomen): Inspection/Auscultation: + abdomen distended (Mild) and + hypoactive bowel sounds; + abnormal bowel sounds Percussion/Palpation: + abdomen tender (Right lower quadrant) and abdomen soft; no guarding and abdomen not rigid Skin: no rashes, warm and dry Psychiatric: Orientation: alert and oriented x 3 Results & Data ([facility]) Vital Signs (Past 12 Hours) Vital Signs Temp Pulse Resp BP Pulse Ox O2 Del Method 09/13/22 07:31 37.3 C 86 16 129/61 98 Room Air 09/13/22 03:35 36.7 C 94 H 18 145/78 H 98 Room Air 09/12/22 23:46 36.6 C 81 18 125/74 98 Room Air Laboratory Results 09/13/22 09/13/22 Range/Units 09:31 09:31 WBC 10.66 (4.8-10.8) K/ul RBC 4.22 L (4.63-6.08) M/uL Hgb 13.5 L (14.0-18.0) g/dl Hct 37.8 L (40.1-51.0) % MCV 89.6 (80.0-100.0) fL MCH 32.0 (25.0-34.0) pg MCHC 35.7 (32.0-36.0) g/dL RDW Std Deviation 41.0 (36.4-46.3) fL RDW Coeff of Kaylie 12.6 (11.5-14.5) % Plt Count 191 (130-400) K/uL MPV 10.8 (9.4-12.4) fL Immature Gran % (Auto) 0.5 % Neut % (Auto) 85.8 % Lymph % (Auto) 7.5 % [place] % (Auto) 5.6 % Eos % (Auto) 0.4 % Baso % (Auto) 0.2 % Neut # (Auto) 9.15 H (1.4-6.5) K/uL Lymph # (Auto) 0.80 L (1.2-3.4) K/uL [place] # (Auto) 0.60 (0.24-0.82) K/uL Eos # (Auto) 0.04 (0-0.50) K/uL Baso # (Auto) 0.02 (0-0.2) K/uL Immature Gran # (Auto) 0.05 H (0.00-0.02) K/uL Sodium 141 (136-145) mmol/L Potassium 3.7 (3.5-5.1) mmol/L Chloride 106 (98-107) mmol/L Carbon Dioxide 27 (21-32) mmol/L Anion Gap 8 (3-11) BUN 14 (6-23) mg/dl Creatinine 1.07 (0.6-1.4) mg/dl Est Cr Clr Drug Dosing 92.8 ml/min Est GFR ( Amer) 108.9 ml/min Est GFR (Non-Af Amer) 94.0 ml/min BUN/Creatinine Ratio 13.1 (10-20) Glucose 80 (70-99(Fasting)) mg/dl Calcium 9.1 (8.5-10.1) mg/dl
[2022-09-13] MEDS: LACTATED RINGER'S 1,000 ML IV SCH ×2 (09:55→18:24)
[2022-09-13 10:19] LABS: Basophils # (auto) 0.02 K/uL (0-0.2); Basophils % (auto) 0.2 %; Eosinophils # (auto) 0.04 K/uL (0-0.50); Eosinophils % (auto) 0.4 %; Hematocrit (blood only) 37.8 % (40.1-51.0); Hemoglobin 13.5 g/dl (14.0-18.0); Immature Granulocytes # (auto) 0.05 K/uL (0.00-0.02); Immature Granulocytes % (auto) 0.5 %; Lymphocytes % (auto) 7.5 %; Mean Corpuscular Hgb Conc 35.7 g/dL (32.0-36.0); Mean Corpuscular Volume 89.6 fL (80.0-100.0); Mean Platelet Volume 10.8 fL (9.4-12.4); Monocytes % (auto) 5.6 %; Neutrophils # (auto) 9.15 K/uL (1.4-6.5); Neutrophils % (auto) 85.8 %; Platelet Count 191 K/uL (130-400); RDW Coefficient of Variation 12.6 % (11.5-14.5); Red Blood Count 4.22 M/uL (4.63-6.08); White Blood Count 10.66 K/ul (4.8-10.8)
[2022-09-13 10:48] LABS: BUN Creatinine Ratio 13.1 (10-20); Calcium 9.1 mg/dl (8.5-10.1); Creatinine Clr Calc Pharmacy 92.8 ml/min; Est GFR (African American) 108.9 ml/min; Potassium 3.7 mmol/L (3.5-5.1)
--- NOTE | 2022-09-13 17:55 | Hospitalist Progress Note ---
Date of Service September 13, 2022 Assessment & Plan (1) Appendicitis with perforation: Plan: Acute appendicitis with perforation --CT ABD:Severe acute appendicitis with perforation. There is flexion change in the right lower quadrant around the appendix with no organized/drainable fluid collection to indicate abscess. There is trace free fluid in the paracolic gutters and pelvis as well as infiltration throughout the mesentery suggesting peritonitis. Small bowel loops are mildly distended and fluid-filled, likely representing ileus. There is no evidence of high-grade obstruction. The bladder wall is circumferentially thickened. Correlate with clinical findings and urinalysis. -- Conservative management as per surgery given perforated appendicitis with significant phlegmon would require extensive surgery including possible ileocece ctomy. -- Patient agrees with the plan Appreciate surgery input Continue Zosyn, IV fluids Pain control N.p.o. for now Pain is improving Afebrile today Diarrhea Stool for C. difficile is pending Hypomagnesemia Replete electrolytes as needed Monitor Alcohol use Reports drinking twice per week Monitor for withdrawal Hyperglycemia HbA1C 5.0 DVT Px: Lovenox SQ Code Status Full code Admission and Anticipated Discharge Date Admission Date: September 10, 2022 Subjective Patient is seen and examined at bedside Reports having diarrhea Abdominal pain better Discussed with surgery today No other complaints Denies any chest pain, dyspnea, dizziness Afebrile today Review of Systems Review of Systems: All systems reviewed & are unremarkable except as noted in Subjective Physical Exam Physical Exam: Physical Exam: Vitals signs as noted above General Appearance:Moderately built and nourished, no apparent distress Head: normocephalic, Atraumatic Eyes: normal inspection, EOMI Neck: supple, Trachea midline Respiratory/Chest: Normal breath sounds, CTA, No accessory muscle use Cardiovascular: S1, S2, No murmur Abdomen/GI:Soft, LLQ, RLQ, RUQ mild tender, Bowel sounds present Extremities/Musculoskeletal:normal inspection, no edema Neurologic/Psych:AAOX3, grossly no focal neurological deficits Skin: normal color, warm Results & Data Results & Data ([facility]) Vital Signs (Past 12 Hours) Vital Signs Temp Pulse Resp BP Pulse Ox O2 Del Method 09/13/22 14:48 37.3 C 66 16 131/76 94 Room Air 09/13/22 07:31 37.3 C 86 16 129/61 98 Room Air Laboratory Results Short CBC 09/13/22 Range/Units 09:31 WBC 10.66 (4.8-10.8) K/ul Hgb 13.5 L (14.0-18.0) g/dl Hct 37.8 L (40.1-51.0) % Plt Count 191 (130-400) K/uL [facility] 09/13/22 09:31 Sodium 141 Potassium 3.7 Chloride 106 Carbon Dioxide 27 BUN 14 Creatinine 1.07 Glucose 80 Calcium 9.1
[2022-09-14] MEDS: KETOROLAC TROMETHAMINE 15 MG/ML VIAL IV PRN ×2 (00:22→16:15)
[2022-09-14] MEDS: PIPERACILLIN/TAZOBACTAM 3.375 GM in DEXTROSE 5% 100 ML IV SCH ×3 (03:28→19:49)
[2022-09-14] MEDS: LACTATED RINGER'S 1,000 ML IV SCH ×3 (03:29→15:44)
[2022-09-14] MEDS ORDERED: LOPERAMIDE HCL 2 MG CAP PO PRN (06:40)
[2022-09-14] MEDS: THIAMINE HCL 100 MG TAB PO SCH (08:39)
[2022-09-14] MEDS: MULTIVITAMIN TAB PO SCH (08:39)
[2022-09-14] MEDS: ENOXAPARIN INJ 40 MG/0.4 ML SYR SQ SCH (08:39)
[2022-09-14] MEDS: FOLIC ACID 1 MG TAB PO SCH (08:39)
[2022-09-14 09:37] LABS: Hematocrit (blood only) 35.3 % (40.1-51.0); Hemoglobin 12.4 g/dl (14.0-18.0); Mean Corpuscular Hemoglobin 31.3 pg (25.0-34.0); Mean Corpuscular Hgb Conc 35.1 g/dL (32.0-36.0); Mean Corpuscular Volume 89.1 fL (80.0-100.0); Mean Platelet Volume 9.8 fL (9.4-12.4); Platelet Count 185 K/uL (130-400); RDW Coefficient of Variation 12.6 % (11.5-14.5); RDW Standard Deviation 41.1 fL (36.4-46.3); Red Blood Count 3.96 M/uL (4.63-6.08); White Blood Count 6.76 K/ul (4.8-10.8)
[2022-09-14 10:07] LABS: BUN Creatinine Ratio 15.2 (10-20); Calcium 8.7 mg/dl (8.5-10.1); Creatinine Clr Calc Pharmacy 107.9 ml/min; Est GFR (African American) 130.7 ml/min; Est GFR (Non-African American) 112.8 ml/min
[2022-09-14 10:29] LABS: Magnesium 1.8 mg/dl (1.7-2.4)
--- NOTE | 2022-09-14 11:12 | Surgery Progress Note ---
Date of Service September 14, 2022 Assessment & Plan (1) Acute appendicitis with rupture: Plan: Has been afebrile for 24 hours Abdominal pain improving No nausea no vomiting , likely secondary small bowel ileus, distention stable + Diarrhea, negative c. diff leukocytosis resolved Plan: Clear liquid diet today Continue IV antibiotics with nonsurgical management at this time given perforated appendicitis with significant phlegmon changes on the CT scan which would likely require more extensive surgery including possible ileocecectomy. Continue IV Zosyn Continue pain management Encouraged ambulating hallway SCDs Dr. Washington has seen and examined pt, agrees with above. Admission and Anticipated Discharge Date Admission Date: September 10, 2022 Subjective states he is feeling slight better today pain is definitely improved but still feeling bloated diarrhea has slown down Urinating but not much, no burning on urinating ambulating hallway Physical Exam Constitutional: WD/WN, vitals as above no acute distress and not ill appearing Neck: normal visual inspection and trachea midline Respiratory: normal respiratory effort; no respiratory distress Gastrointestinal (Abdomen): Inspection/Auscultation: abdomen normal to inspection, + abdomen distended and + hypoactive bowel sounds; + abnormal bowel sounds Percussion/Palpation: + abdomen tender (very mild on deep palpation in RLQ) and abdomen soft; no guarding and abdomen not rigid Skin: no rashes, warm and dry Psychiatric: A+Ox3, euthymic affect Results & Data ([facility]) Vital Signs (Past 12 Hours) Vital Signs Temp Pulse Resp BP Pulse Ox O2 Del Method 09/14/22 07:21 36.8 C 59 L 16 120/78 100 Room Air Laboratory Results 09/14/22 09/14/22 09/14/22 Range/Units 09:21 09:21 09:21 WBC 6.76 (4.8-10.8) K/ul RBC 3.96 L (4.63-6.08) M/uL Hgb 12.4 L (14.0-18.0) g/dl Hct 35.3 L (40.1-51.0) % MCV 89.1 (80.0-100.0) fL MCH 31.3 (25.0-34.0) pg MCHC 35.1 (32.0-36.0) g/dL RDW Std Deviation 41.1 (36.4-46.3) fL RDW Coeff of Kaylie 12.6 (11.5-14.5) % Plt Count 185 (130-400) K/uL MPV 9.8 (9.4-12.4) fL Sodium 142 (136-145) mmol/L Potassium 4.0 (3.5-5.1) mmol/L Chloride 108 H (98-107) mmol/L Carbon Dioxide 26 (21-32) mmol/L Anion Gap 8 (3-11) BUN 14 (6-23) mg/dl Creatinine 0.92 (0.6-1.4) mg/dl Est Cr Clr Drug Dosing 107.9 ml/min Est GFR ( Amer) 130.7 ml/min Est GFR (Non-Af Amer) 112.8 ml/min BUN/Creatinine Ratio 15.2 (10-20) Glucose 83 (70-99(Fasting)) mg/dl Calcium 8.7 (8.5-10.1) mg/dl Magnesium 1.8 Cancelled Stl C. diff Tox B Gene (Neg) 09/13/22 Range/Units 14:25 WBC (4.8-10.8) K/ul RBC (4.63-6.08) M/uL Hgb (14.0-18.0) g/dl Hct (40.1-51.0) % MCV (80.0-100.0) fL MCH (25.0-34.0) pg MCHC (32.0-36.0) g/dL RDW Std Deviation (36.4-46.3) fL RDW Coeff of Kaylie (11.5-14.5) % Plt Count (130-400) K/uL MPV (9.4-12.4) fL Sodium (136-145) mmol/L Potassium (3.5-5.1) mmol/L Chloride (98-107) mmol/L Carbon Dioxide (21-32) mmol/L Anion Gap (3-11) BUN (6-23) mg/dl Creatinine (0.6-1.4) mg/dl Est Cr Clr Drug Dosing ml/min Est GFR ( Amer) ml/min Est GFR (Non-Af Amer) ml/min BUN/Creatinine Ratio (10-20) Glucose (70-99(Fasting)) mg/dl Calcium (8.5-10.1) mg/dl Magnesium Stl C. diff Tox B Gene Negative Cdiff Gene (Neg)
--- NOTE | 2022-09-14 12:30 | Hospitalist Progress Note ---
Date of Service September 14, 2022 Assessment & Plan (1) Appendicitis with perforation: Plan: Acute appendicitis with perforation --CT ABD:Severe acute appendicitis with perforation. There is flexion change in the right lower quadrant around the appendix with no organized/drainable fluid collection to indicate abscess. There is trace free fluid in the paracolic gutters and pelvis as well as infiltration throughout the mesentery suggesting peritonitis. Small bowel loops are mildly distended and fluid-filled, likely representing ileus. There is no evidence of high-grade obstruction. The bladder wall is circumferentially thickened. Correlate with clinical findings and urinalysis. -- Conservative management as per surgery given perforated appendicitis with significant phlegmon would require extensive surgery including possible ileocece ctomy. -- Patient agrees with the plan Appreciate surgery input Continue Zosyn, IV fluids Pain control clear liquid diet today Pain is improving Afebrile >24 hours Diarrhea Stool for C. difficile is negative Hypomagnesemia Replete electrolytes as needed Monitor DVT Px: Lovenox SQ Code Status Full code Admission and Anticipated Discharge Date Admission Date: September 10, 2022 Subjective Patient with rupture appendicitis with significant phlegmon being treated conservatively by surgery with IV abx, pain control. Advancing diet as tolerated, encouraging ambulation as tolerated. Patient reports some improvement in abdominal pain this morning, still having diarrhea. Denies fevers or chills, n/v, dysuria, cough, chest pain, shortness of breath. Had some clear liquid diet this morning and felt ok but felt like his stomach got a little upset so had limited intake. Review of Systems Review of Systems: As per HPI, all other systems reviewed and negative Physical Exam Physical Exam: General Appearance:Moderately built and nourished, no apparent distress Head: normocephalic, Atraumatic Eyes: normal inspection, EOMI Neck: supple, Trachea midline Respiratory/Chest: Normal breath sounds, CTA, No accessory muscle use Cardiovascular: S1, S2, No murmur Abdomen/GI:Soft, LLQ, RLQ, RUQ mild tender, Bowel sounds present Extremities/Musculoskeletal:normal inspection, no edema Neurologic/Psych:AAOX3, grossly no focal neurological deficits Skin: normal color, warm Results & Data Results & Data ([facility]) Vital Signs (Past 12 Hours) Vital Signs Temp Pulse Resp BP Pulse Ox O2 Del Method 09/14/22 07:21 36.8 C 59 L 16 120/78 100 Room Air Diagnostic Findings Laboratory Results WBC 6.76 K/ul (4.8-10.8) 09/14/22 09: RBC 3.96 M/uL (4.63-6.08) L 09/14/22 09:21 Hgb 12.4 g/dl (14.0-18.0) L 09/14/22 09:21 Hct 35.3 % (40.1-51.0) L 09/14/22 09:21 MCV 89.1 fL (80.0-100.0) 09/14/22 09:21 MCH 31.3 pg (25.0-34.0) 09/14/22 09: MCHC 35.1 g/dL (32.0-36.0) 09/14/22 09: RDW Std Deviation 41.1 fL (36.4-46.3) 09/14/22 09: RDW Coeff of Kaylie 12.6 % (11.5-14.5) 09/14/22 09: Plt Count 185 K/uL (130-400) 09/14/22 09:21 MPV 9.8 fL (9.4-12.4) 09/14/22 09:21 Immature Gran % (Auto) 0.5 % 09/13/22 09: Neut % (Auto) 85.8 % 09/13/22 09:31 Lymph % (Auto) 7.5 % 09/13/22 09:31 [place] % (Auto) 5.6 % 09/13/22 09: Eos % (Auto) 0.4 % 09/13/22 09:31 Baso % (Auto) 0.2 % 09/13/22 09:31 Neut # (Auto) 9.15 K/uL (1.4-6.5) H 09/13/22 09:31 Lymph # (Auto) 0.80 K/uL (1.2-3.4) L 09/13/22 09:31 [place] # (Auto) 0.60 K/uL (0.24-0.82) 09/13/22 09:31 Eos # (Auto) 0.04 K/uL (0-0.50) 09/13/22 09: Baso # (Auto) 0.02 K/uL (0-0.2) 09/13/22 09:31 Immature Gran # (Auto) 0.05 K/uL (0.00-0.02) H 09/13/22 09:31 Sodium 142 mmol/L (136-145) 09/14/22 09:21 Potassium 4.0 mmol/L (3.5-5.1) 09/14/22 09:21 Chloride 108 mmol/L (98-107) H 09/14/22 09:21 Carbon Dioxide 26 mmol/L (21-32) 09/14/22 09:21 Anion Gap 8 (3-11) 09/14/22 09:21 BUN 14 mg/dl (6-23) 09/14/22 09:21 Creatinine 0.92 mg/dl (0.6-1.4) 09/14/22 09:21 Est Cr Clr Drug Dosing 107.9 ml/min 09/14/22 09:21 Est GFR ( Amer) 130.7 ml/min 09/14/22 09:21 Est GFR (Non-Af Amer) 112.8 ml/min 09/14/22 09:21 BUN/Creatinine Ratio 15.2 (10-20) 09/14/22 09:21 Glucose 83 mg/dl (70-99(Fasting)) 09/14/22 09:21 Estimat Average Glucose 97 mg/dl 09/10/22 19:50 Hemoglobin A1c 5.0 % (4.5-5.6) 09/10/22 19:50 Calcium 8.7 mg/dl (8.5-10.1) 09/14/22 09:21 Magnesium Cancelled 09/14/22 09:21 Magnesium 1.8 mg/dl (1.7-2.4) 09/14/22 09:21 Total Bilirubin 1.7 mg/dl (0.2-1.0) H 09/10/22 19:50 AST 18 U/L (13-39) 09/10/22 19:50 ALT 15 U/L (7-52) 09/10/22 19:50 Alkaline Phosphatase 90 U/L (34-104) 09/10/22 19:50 Total Protein 7.4 gm/dl (6.0-8.3) 09/10/22 19:50 Albumin 4.8 gm/dl (3.4-5.0) 09/10/22 19:50 Globulin 2.6 gm/dl (2.5-4.0) 09/10/22 19:50 Albumin/Globulin Ratio 1.8 (0.9-2) 09/10/22 19:50 Lipase 14 U/L (11-82) 09/10/22 19:50 Urine Color Dark Yellow 09/10/22 21:40 Urine Appearance Clear (Clear) 09/10/22 21:40 Urine pH 8.0 (4.5-7.5) H 09/10/22 21:40 Ur Specific [place] 1.021 (1.000-1.030) 09/10/22 21:40 Urine Protein Trace (Negative) H 09/10/22 21:40 Urine Glucose (UA) Negative (Negative) 09/10/22 21:40 Urine Ketones 1+ (Negative) H 09/10/22 21:40 Urine Blood Negative (Negative) 09/10/22 21:40 Urine Nitrite Negative (Negative) 09/10/22 21:40 Urine Bilirubin Negative (Negative) 09/10/22 21:40 Urine Urobilinogen Negative (Negative) 09/10/22 21:40 Ur Leukocyte Esterase Negative (Negative) 09/10/22 21:40 Urine WBC (Auto) 1-5 /hpf (0-5) 09/10/22 21:40 Urine RBC (Auto) 0-4 /hpf (0-4) 09/10/22 21:40 U Hyaline Cast (Auto) 1-5 /lpf (0-5) 09/10/22 21:40 U Epithel Cells (Auto) 10-20 /lpf (0-5) H 09/10/22 21:40 Urine Bacteria (Auto) Negative (Negative) 09/10/22 21:40 Stl C. diff Tox B Gene Negative Cdiff Gene (Neg) 09/13/22 14:25 SARS-CoV-2, RNA, NAAT NEGATIVE (NEGATIVE) 09/10/22 21:42 Impressions Abdomen/Pelvis CT 09/10/22 20:34 CT SCAN OF THE ABDOMEN AND PELVIS WITH IV CONTRAST CLINICAL HISTORY: Lower abdominal pain. Nausea and vomiting. COMPARISON STUDY: No priors. TECHNIQUE: Following the IV administration of 87 cc of Optiray 350, CT scan of the abdomen and pelvis is performed from the lung bases to the proximal femora. Images are reviewed in the axial, sagittal, and coronal planes. IV contrast was administered without complication. A dose lowering technique was utilized adhering to the principles of ALARA. CT DOSE: 270.25 mGy.cm FINDINGS: Lung bases: The heart is normal in size and without pericardial effusion. Atelectasis is noted in the right middle lobe. The lung bases are otherwise clear. Liver: The contrast-enhanced liver is normal in size, contour, and attenuation. There is no intrahepatic biliary ductal dilatation. The hepatic veins and portal veins are patent. Gallbladder: Unremarkable. Spleen: Normal in size and attenuation. Pancreas: Unremarkable. Adrenal glands: Unremarkable. Kidneys: The contrast enhanced kidneys are normal in size and without hydronephrosis. The kidneys enhance symmetrically. Abdominal vasculature: The abdominal aorta is normal in course and caliber. Bowel: There is moderate colonic fecal retention. The appendix is dilated measuring up to 1.5 cm as seen on image #[id number]. A calcified appendicolith at the base of the appendix is seen on image #[id number]. The appendiceal wall is markedly thickened and hyperemic and there is extensive surrounding inflammation and fluid. Findings consistent with acute appendicitis. There is evidence of perforation with surrounding phlegmon. No organized/drainable fluid collection is identified. Mildly distended and fluid-filled loops of small bowel measure up to 2.3 cm diameter. This likely represents ileus. There is no evidence of high- grade obstruction. Peritoneum: There is trace fluid within the paracolic gutters and in the pelvis. No intraperitoneal free air is identified. There is a fat-containing umbilical hernia. Infiltration of the mesentery suggests peritonitis. Lymphadenopathy: Mildly enlarged mesenteric lymph nodes are likely reactive. Pelvic viscera: The bladder is decompressed and circumferentially thick-walled. The prostate and seminal vesicles unremarkable as visualized. Skeletal structures: No lytic or blastic lesions are seen. IMPRESSION: 1. Severe acute appendicitis with perforation. 2. There is flexion change in the right lower quadrant around the appendix with no organized/drainable fluid collection to indicate abscess. 3. There is trace free fluid in the paracolic gutters and pelvis as well as infiltration throughout the mesentery suggesting peritonitis. 4. Small bowel loops are mildly distended and fluid-filled, likely representing ileus. There is no evidence of high-grade obstruction. 5. The bladder wall is circumferentially thickened. Correlate with clinical findings and urinalysis. ACT 112: Negative or not required by law. Electronically signed by: Buck Parekh M.D. 09/10/2022 9:12 PM Medications Administered Current Inpatient Medications Acetaminophen (Acetaminophen 325 Mg Tab) 650 mg PO Q4H PRN PRN Reason: pain/fever Stop: 10/11/22 00:10 Last Admin: 09/12/22 19:54 Dose: 650 mg Enoxaparin Sodium (Enoxaparin Inj 40 Mg/0.4 Ml Syr) 40 mg SQ QAM [facility] Stop: 10/11/22 08:59 Last Admin: 09/14/22 08:39 Dose: Not Given Folic Acid (Folic Acid 1 Mg Tab) 1 mg PO QAM [facility] Stop: 10/11/22 08:59 Last Admin: 09/14/22 08:39 Dose: Not Given Lorazepam 0.5 mg/ Syringe 0.5 mls @ 2 mls/min IV Q6H PRN PRN Reason: Anxiety Stop: 10/10/22 22:43 Promethazine HCl 12.5 mg/ (Sodium Chloride) 50.5 mls @ 202 mls/hr IV Q6H PRN PRN Reason: Nausea And Vomiting Stop: 10/10/22 22:43 Piperacillin Sod/Tazobactam (Sod 3.375 gm/ Dextrose) 115 mls @ 28.75 mls/hr IV Q8H [facility]; Protocol Stop: 09/21/22 03:59 Last Admin: 09/14/22 12:19 Dose: 28.8 mls/hr Lactated Ringer's (Lr) 1,000 mls @ 200 mls/hr IV .Q5H [facility] Stop: 10/11/22 08:29 Last Admin: 09/14/22 10:36 Dose: 200 mls/hr Ketorolac Tromethamine (Ketorolac Tromethamine 15 Mg/Ml Vial) 15 mg IV Q6H PRN PRN Reason: Pain Stop: 09/15/22 22:43 Last Admin: 09/14/22 00:22 Dose: 15 mg Loperamide HCl (Loperamide Hcl 2 Mg Cap) 2 mg PO UD PRN PRN Reason: Diarrhea Stop: 10/14/22 06:39 Morphine Sulfate (Morphine Sulfate 2 Mg/Ml Carp) 2 mg IV Q3H PRN PRN Reason: Moderate Pain Stop: 09/26/22 15:07 Morphine Sulfate (Morphine Sulfate 4 Mg/Ml 1 Ml Carp\Vial) 4 mg IV Q3H PRN PRN Reason: Severe Pain Stop: 09/26/22 15:07 Multivitamins (Multivitamin Tab) 1 tab PO [facility] Stop: 10/11/22 08:59 Last Admin: 09/14/22 08:39 Dose: Not Given Oxycodone HCl (Oxycodone Hcl Ir 5 Mg Tab (Immediate Release)) 5 mg PO Q4H PRN PRN Reason: Pain Stop: 09/24/22 22:43 Last Admin: 09/11/22 13:16 Dose: 5 mg Thiamine HCl (Thiamine Hcl 100 Mg Tab) 100 mg PO [facility] Stop: 10/11/22 08:59 Last Admin: 09/14/22 08:39 Dose: Not Given
[2022-09-14] MEDS ORDERED: LACTATED RINGER'S 1,000 ML IV ONE (19:05)
[2022-09-14] MEDS ORDERED: SIMETHICONE 80 MG CHEW PO STA (19:25)
[2022-09-15] MEDS: KETOROLAC TROMETHAMINE 15 MG/ML VIAL IV PRN ×2 (02:50→16:46)
[2022-09-15] MEDS: PIPERACILLIN/TAZOBACTAM 3.375 GM in DEXTROSE 5% 100 ML IV SCH ×2 (03:15→12:07)
[2022-09-15] MEDS ORDERED: SODIUM CHLORIDE 0.9% 1000ML 1,000 ML IV ONE (06:13)
--- NOTE | 2022-09-15 06:13 | Communication Note ---
Date of Service: September 15, 2022 Patient with decreased urine output as per RN. Worsening abdominal pain and bloating. Resume IV fluids N.p.o. for now Repeat CT abdomen pelvis Will relay to AM provider.
[2022-09-15] MEDS: FOLIC ACID 1 MG TAB PO SCH (08:08)
[2022-09-15] MEDS: MULTIVITAMIN TAB PO SCH (08:08)
[2022-09-15] MEDS: THIAMINE HCL 100 MG TAB PO SCH (08:08)
[2022-09-15] MEDS: ENOXAPARIN INJ 40 MG/0.4 ML SYR SQ SCH (08:08)
[2022-09-15 08:34] LABS: Basophils # (auto) 0.01 K/uL (0-0.2); Basophils % (auto) 0.2 %; Eosinophils # (auto) 0.06 K/uL (0-0.50); Hematocrit (blood only) 35.2 % (40.1-51.0); Hemoglobin 12.5 g/dl (14.0-18.0); Immature Granulocytes # (auto) 0.03 K/uL (0.00-0.02); Immature Granulocytes % (auto) 0.5 %; Lymphocytes # (auto) 0.89 K/uL (1.2-3.4); Lymphocytes % (auto) 14.3 %; Mean Corpuscular Hgb Conc 35.5 g/dL (32.0-36.0); Mean Platelet Volume 10.4 fL (9.4-12.4); Monocytes # (auto) 0.62 K/uL (0.24-0.82); Monocytes % (auto) 9.9 %; Neutrophils # (auto) 4.63 K/uL (1.4-6.5); Neutrophils % (auto) 74.1 %; Platelet Count 209 K/uL (130-400); RDW Coefficient of Variation 12.8 % (11.5-14.5); RDW Standard Deviation 42.1 fL (36.4-46.3); Red Blood Count 3.91 M/uL (4.63-6.08); White Blood Count 6.24 K/ul (4.8-10.8)
[2022-09-15] MEDS ORDERED: OPTIRAY 350 100ml IV ONE (08:51)
[2022-09-15] MEDS: LACTATED RINGER'S 1,000 ML IV SCH ×2 (09:04→19:27)
[2022-09-15 09:07] LABS: BUN Creatinine Ratio 12.9 (10-20); Calcium 8.1 mg/dl (8.5-10.1); Creatinine Clr Calc Pharmacy 116.8 ml/min; Est GFR (African American) 137.4 ml/min; Est GFR (Non-African American) 118.6 ml/min; Magnesium 1.7 mg/dl (1.7-2.4); Phosphorus 3.6 mg/dl (2.5-4.9); Potassium 3.6 mmol/L (3.5-5.1)
--- NOTE | 2022-09-15 09:33 | CT Scan Report ---
ABDOMEN AND PELVIS CT WITH IV CONTRAST CT DOSE: 476.31 mGycm HISTORY: Acute abdominal pain. Surgery is reportedly treating this patient nonsurgically worsening a bd pain TECHNIQUE: Multiaxial CT images of the abdomen and pelvis were performed following the IV administrat ion of 94 cc of Optiray, A dose lowering technique was utilized adhering to the principles of ALARA. COMPARISON STUDY: CT abdomen and pelvis 09/10/2022 FINDINGS: Heart is normal in size. Layering small pleural effusions with dependent bibasilar atelecta sis. No gross pneumoperitoneum. The spleen is mildly enlarged, 13.4 cm. Unremarkable pancreas, gallbl adder, adrenal glands and liver. Patency of the hepatic and portal veins. Unremarkable kidneys withou t hydronephrosis. Urinary bladder wall thickening with perivesicular stranding and partial distention . Aorta and IVC are unremarkable. Interval development of a high-grade small bowel obstruction with dilated air and fluid-filled loops of small bowel measuring up to approximately 5 cm. The large bowel is probably decompressed and is al so air and fluid-filled. Transition point is noted within the right lower quadrant where there are se veral loops of ileum which demonstrates circumferential wall thickening with mucosal hyperemia. Findi ngs of perforated acute appendicitis are again noted with worsening phlegmon within the pelvis. Inter mark development of a peripherally enhancing fluid collection within the central pelvis interposed bet ween the rectum, prostate and loops of ileum which conglomerate measure up to approximately 9 cm in l ength. 5.6 cm component is noted on image 382 with higher 5.7 cm component noted on image 362. Possib le additional fluid collection within the abdominal right lower quadrant measuring 2.3 cm. Mild generalized body wall edema. No acute fracture. IMPRESSION: 1. Findings of acute appendicitis with perforation are redemonstrated. There are worsening inflammato ry changes with phlegmon in the pelvis resulting in a high-grade small bowel obstruction. Additionall y, there are numerous loops of ileum which demonstrate circumferential wall thickening. 2. Interval development of a loculated mid pelvic abscess anterior to the rectum with probable additi onal abscess within the abdominal right lower quadrant. These abscesses do not communicate. 3. Small pleural effusions with mild dependent subsegmental atelectasis. ACT 112: Negative or not required by law. The above report was generated using voice recognition software. It may contain grammatical, syntax o r spelling errors. Electronically signed by: Bebeto Garcia M.D. 09/15/2022 9:31 AM
--- NOTE | 2022-09-15 13:30 | Surgery Progress Note ---
Date of Service September 15, 2022 Assessment & Plan (1) Acute appendicitis with rupture: Plan: Has been afebrile for 24 hours Abdominal pain improving No nausea no vomiting , likely secondary small bowel ileus, distention stable + Diarrhea, negative c. diff leukocytosis resolved Plan: Clear liquid diet today Continue IV antibiotics with nonsurgical management at this time given perforated appendicitis with significant phlegmon changes on the CT scan which would likely require more extensive surgery including possible ileocecectomy. Continue IV Zosyn Continue pain management Encouraged ambulating [facility] Dr. Washington has seen and examined pt, agrees with above. 09/15/2022 1:32Pm Dr. Washington F/U Patient with rupture appendicitis with significant phlegmon pt feels better, no fever, WBC 6k plan, continue iv antibiotic, OOB repeat labs in morning, will F/U, Admission and Anticipated Discharge Date Admission Date: September 10, 2022 Subjective Patient with rupture appendicitis with significant phlegmon being treated conservatively by surgery with IV abx, pain control. Advancing diet as tolerated, encouraging ambulation as tolerated. Patient reports some improvement in abdominal pain this morning, still having diarrhea. Denies fevers or chills, n/v, dysuria, cough, chest pain, shortness of breath. Had some clear liquid diet this morning and felt ok but felt like his stomach got a little upset so had limited intake. 09/15/2022 1:26PM Dr. Washington, F/U Patient with rupture appendicitis with significant phlegmon pt said he feels better today, no significant abdominal pain, no vomiting, no fever, normal WBC,still diarrhea, I reviewed repeat Ct scan with pt, Review of Systems Constitutional: no fever and no chills Eyes: no problem reported Ear, Nose, Mouth, Throat: no problem reported Respiratory: no cough and no dyspnea Cardiovascular: no chest pain Gastrointestinal: + abdominal pain; no nausea, no vomiting and no change in bowel habits Genitourinary: no dysuria Musculoskeletal: no back pain Integumentary: no rash and no lesions Neurologic: no localized weakness and no generalized weakness Psychiatric: no behavioral changes Physical Exam Constitutional: WD/WN, vitals as above Eyes: PERRL, conjunctivae normal, anicteric sclerae Neck: trachea midline, no thyromegaly Respiratory: normal respiratory effort, lungs clear to auscultation Cardiovascular: RRR, no murmur, no edema Gastrointestinal (Abdomen): soft, mild tenderness at RLQ, mild distend, no rebound pain, BS +, Neurologic: patellar DTR's 2+ bilat, sensation intact Psychiatric: A+Ox3, euthymic affect Results & Data ([facility]) Vital Signs (Past 12 Hours) Vital Signs Temp Pulse Resp BP Pulse Ox O2 Del Method 09/15/22 07:23 36.8 C 55 L 16 135/85 99 Room Air Laboratory Results Abnormal lab results 09/15/22 09/15/22 Range/Units 07:47 07:47 RBC 3.91 L (4.63-6.08) M/uL Hgb 12.5 L (14.0-18.0) g/dl Hct 35.2 L (40.1-51.0) % Lymph # (Auto) 0.89 L (1.2-3.4) K/uL Immature Gran # (Auto) 0.03 H (0.00-0.02) K/uL Calcium 8.1 L (8.5-10.1) mg/dl Diagnostic Findings ABDOMEN AND PELVIS CT WITH IV CONTRAST CT DOSE: 476.31 mGycm HISTORY: Acute abdominal pain. Surgery is reportedly treating this patient nonsurgically worsening abd pain TECHNIQUE: Multiaxial CT images of the abdomen and pelvis were performed following the IV administration of 94 cc of Optiray, A dose lowering technique was utilized adhering to the principles of ALARA. COMPARISON STUDY: CT abdomen and pelvis 09/10/2022 FINDINGS: Heart is normal in size. Layering small pleural effusions with dependent bibasilar atelectasis. No gross pneumoperitoneum. The spleen is mildly enlarged, 13.4 cm. Unremarkable pancreas, gallbladder, adrenal glands and liver. Patency of the hepatic and portal veins. Unremarkable kidneys without hydronephrosis. Urinary bladder wall thickening with perivesicular stranding and partial distention. Aorta and IVC are unremarkable. Interval development of a high-grade small bowel obstruction with dilated air and fluid-filled loops of small bowel measuring up to approximately 5 cm. The large bowel is probably decompressed and is also air and fluid-filled. Transition point is noted within the right lower quadrant where there are several loops of ileum which demonstrates circumferential wall thickening with mucosal hyperemia. Findings of perforated acute appendicitis are again noted with worsening phlegmon within the pelvis. Interval development of a peripherally enhancing fluid collection within the central pelvis interposed between the rectum, prostate and loops of ileum which conglomerate measure up to approximately 9 cm in length. 5.6 cm component is noted on image 382 with higher 5.7 cm component noted on image 362. Possible additional fluid collection within the abdominal right lower quadrant measuring 2.3 cm. Mild generalized body wall edema. No acute fracture. IMPRESSION: 1. Findings of acute appendicitis with perforation are redemonstrated. There are worsening inflammatory changes with phlegmon in the pelvis resulting in a high- grade small bowel obstruction. Additionally, there are numerous loops of ileum which demonstrate circumferential wall thickening. 2. Interval development of a loculated mid pelvic abscess anterior to the rectum with probable additional abscess within the abdominal right lower quadrant. These abscesses do not communicate. 3. Small pleural effusions with mild dependent subsegmental atelectasis. ACT 112: Negative or not required by law.
--- NOTE | 2022-09-15 13:46 | Hospitalist Progress Note ---
Date of Service September 15, 2022 Assessment & Plan (1) Appendicitis with perforation: Plan: Acute appendicitis with perforation --CT ABD:Severe acute appendicitis with perforation. There is flexion change in the right lower quadrant around the appendix with no organized/drainable fluid collection to indicate abscess. There is trace free fluid in the paracolic gutters and pelvis as well as infiltration throughout the mesentery suggesting peritonitis. Small bowel loops are mildly distended and fluid-filled, likely representing ileus. There is no evidence of high-grade obstruction. The bladder wall is circumferentially thickened. Correlate with clinical findings and urinalysis. -- Conservative management as per surgery given perforated appendicitis with significant phlegmon would require extensive surgery including possible ileocece ctomy. -- Patient agrees with the plan Appreciate surgery input Continue Zosyn, IV fluids Pain control clear liquid diet today Pain is improving Afebrile >24 hours Diarrhea Stool for C. difficile is negative Hypomagnesemia Replete electrolytes as needed Monitor DVT Px: Lovenox SQ Code Status Full code Admission and Anticipated Discharge Date Admission Date: September 10, 2022 Subjective Seen and examined in 352 bed 2. Feeling better today since made n.p.o. again. Still with some abdominal bloating but no pain or nausea. Ambulating the halls without issue. Denies any fever, chills, lightheadedness, chest pain, shortness of breath, dysuria. Results & Data Results & Data ([facility]) Vital Signs (Past 12 Hours) Vital Signs Temp Pulse Resp BP Pulse Ox O2 Del Method 09/15/22 07:23 36.8 C 55 L 16 135/85 99 Room Air
--- NOTE | 2022-09-15 15:40 | Discharge Summary ---
Date of Service September 15, 2022 Admission HPI Per Admitting Provider History obtained from patient, family, and records. Medical history significant for alcohol abuse. 2 days history of central abdominal pain which later localized to the right lower quadrant. Nausea and emesis symptoms. No fever, no chills. Chest pain, no shortness of breath. No BM for 2 days. Patient consulted ER for evaluation. Zosyn administered for perforated appendicitis. Admission Exam Per Admitting Provider GENERAL: Slightly uncomfortable, pleasant, no respiratory distress SKIN: Normal color, warm HEENT: Phillips palpebral conjunctivae, no ptosis, dry buccal mucosa NECK : Supple, no tenderness CHEST : CTA, no tenderness HEART : RRR, no obvious murmurs ABDOMEN: Some distention, some guarding noted, generalized abdominal tenderness EXTREMITIES : No LE swelling/tenderness, no other conspicuous deformities noted NEUROLOGIC : Coherent, no facial asymmetry, no other gross focality Principal Diagnosis ruptured appendicitis complicated by phlegmon and multiple intraabdominal abscess formation Discharge Exam Gen: WD/WN, NAD,ambulating in hallway, A&Ox3 HEENT: Normocephalic, atraumatic, conjunctivae moist, sclerae anicteric, mucous membranes moist Lung: Clear to Auscultation bilaterally, no wheezes/rales/rhonchi Heart: Regular rate, regular rhythm, no murmurs, rubs, or gallops Abdomen: Soft, NT but distended, +hypoactive bowel sounds Extremities: no edema Skin: Warm, no rash Discharge Data Allergies Allergy/AdvReac Type Severity Reaction Status Date / Time No Known Allergies Allergy Unverified 09/10/22 23:11 Consultations 09/10/22 21:24 Consult General Surgery Stat 09/10/22 21:32 ED Decision to Admit Stat 09/11/22 00:11 Consult General Surgery Routine 09/15/22 14:53 Burn CD for patient Stat Ordered Studies 09/10/22 20:34 CT abd pelvis IV con only Stat 09/15/22 06:14 CT abd pelvis IV con only Urgent Hospital Course (1) Appendicitis with perforation: (2) Abdominal pain, acute, right lower quadrant: (3) Bowel obstruction: Plan Patient with alcohol use history initially presented with abdominal pain and was found to have ruptured appendicitis complicated by phlegmon and multiple intr aabdominal abscess formation. Initially treated conservatively by general surgery team with IV Zosyn and IV lactated ringers. When diet was advanced, patient had worsening abdominal pain and repeat CT of abdomen with IV contrast showed worsening of inflammation and formation of multiple abscesses. Due to significant change on imaging, general surgery service concerned for abscess and possible IR drainage and recommended transfer to tertiary care center for further care. Hopeful that drainage of the pelvic abscess will help with the worsening inflammatory phlegmonous changes and small bowel obstruction. General surgery in [facility] accepted patient. Continuing IV antibiotics (due for next dose at 1999) during BLS transport and strict NPO status. No indication for NGT at this time due to no N/V or stomach distention on CT scan. Patient comfortable and hemodynamically stable at time of discharge. Total Time Total Time Spent Total Time Spent (In Minutes): 60 Discharge Plan Discharge Items Patient Disposition: Transfer Acute Care Hospital Reason For Visit: RUPTURED AP Discharge Diagnosis: ruptured appendicitis complicated by phlegmon and multiple intraabdominal abscess formation Health Concerns: Acetaminophen (Acetaminophen 325 Mg Tab) 650 mg PO Q4H PRN PRN Reason: pain/fever Enoxaparin Sodium (Enoxaparin Inj 40 Mg/0.4 Ml Syr) 40 mg SQ QAM KING Folic Acid (Folic Acid 1 Mg Tab) 1 mg PO QAM KING Lorazepam 0.5 mg/ Syringe 0.5 mls @ 2 mls/min IV Q6H PRN PRN Reason: Anxiety Promethazine HCl 12.5 mg/ (Sodium Chloride) 50.5 mls @ 202 mls/hr IV Q6H PRN PRN Reason: Nausea And Vomiting Piperacillin Sod/Tazobactam (Sod 3.375 gm/ Dextrose) 115 mls @ 28.75 mls/hr IV Q8H KING; Protocol Lactated Ringer's (Lr) 1,000 mls @ 100 mls/hr IV .Q10H KING Stop: 10/15/22 07:59 Last Admin: 09/15/22 09:04 Dose: 100 mls/hr Ketorolac Tromethamine (Ketorolac Tromethamine 15 Mg/Ml Vial) 15 mg IV Q6H PRN PRN Reason: Pain Loperamide HCl (Loperamide Hcl 2 Mg Cap) 2 mg PO UD PRN PRN Reason: Diarrhea Morphine Sulfate (Morphine Sulfate 2 Mg/Ml Carp) 2 mg IV Q3H PRN PRN Reason: Moderate Pain Morphine Sulfate (Morphine Sulfate 4 Mg/Ml 1 Ml Carp\Vial) 4 mg IV Q3H PRN PRN Reason: Severe Pain Multivitamins (Multivitamin Tab) 1 tab PO QAM KING Oxycodone HCl (Oxycodone Hcl Ir 5 Mg Tab (Immediate Release)) 5 mg PO Q4H PRN PRN Reason: Pain Activity: As commented below Activity Comment: per accepting facility Non-emergency contact: Primary Care Provider and Surgeon Call non-emergency contact if: you have any medication questions and your symptoms worsen Follow-up/Referrals: Micheal Herrera PA-C [Primary Care Provider] - Diet: Nothing by Mouth Addtl Attending Provider Instructions: You were admitted for ruptured appendicitis complicated by surrounding inflammation, treated without surgery initially with IV antibiotics and IV fluids by surgical team. Tried to advance diet but had worsening abdominal pain, repeat CT of abdomen with IV contrast showed worsening of inflammation and formation of multiple abscesses. Surgery concerned for abscess and possible IR drainage. [facility] in [place] contacted for transfer and accepted by surgical team for transfer. Pending Studies at Discharge: No Stand-Alone Forms: My [facility] Skilled Items Patient informed of condition?: Yes DNR: No Discharge Level of Care: Other Communicable Disease: No Discharge Prognosis: Stable Lines: Peripheral IV Urinary Catheter: No Medications and DC Order Prescriptions: Continued ibuprofen [Advil] 200 mg Tablet 400 mg PO Q8 PRN (Reason: fever/ pain) docusate sodium [Stool Softener] 100 mg Capsule 100 mg PO TID PRN (Reason: Constipation) ascorbic acid (vitamin C) 100 mg Tablet 100 mg PO DAILY PRN (Reason: Prophylaxis) Discharge Orders: Discharge Order (Routine); Ordered 09/15/22 Ordered By: Ramsey Stanton Admission Data Admit Date/Time: 09/10/22 22:41 Attending Provider: Ramsey Stanton Admit Provider: Missael Granados Primary Care Provider: Micheal Herrera Other Providers: Greg Figueroa ; Missael Granados ; Adrianne Andrew Supervising Physician Co-Signing Physician Notes Patient seen and examined at bedside. Discussed with Adrianne Andrew PA-C and agree with note as outlined above.
== END 2022-09-15 19:45 | disposition short-term general hospital (02) | DRG 372 ==
LOC: ED 19:39 → SUATTDRO 22:41 → 3W 22:41